=== PATIENT | male | born 1930 ===

== ENCOUNTER 2017-02-19 17:15 | Inpatient (IN) | payer MEDICARE, MEDICAID ==
[2017-02-19] MEDS ORDERED: Sodium Chloride 0.9% 1,000 ML IV STA (17:24)
--- NOTE | 2017-02-19 17:31 | ED PDOC ---
HPI: General Adult Time Seen by Provider: 02/19/17 17:22 Chief Complaint (Provider): dizziness History Per: EMS History/Exam Limitations: clinical condition (dementia) Onset/Duration Of Symptoms: Mins (prior to arrival) Current Symptoms Are (Timing): Better Additional Complaint(s): Donny Gomes is a 86 year old male with previous medical history of dementia, Parkinson's disease, diabetes and hypertension, who presents to the emergency department via EMS for an evaluation status post found unresponsive at adult daycare prior to arrival. Patient currently is awake, lethargic and dizzy in ED. Denied headache, chest pain, abdominal pain and palpitations. EMS reported patient was bradycardic, hypotensive with low O2 saturation upon arrival. PMD: none provided Past Medical History Reviewed: Historical Data, Nursing Documentation, Vital Signs Vital Signs: Last Vital Signs Temp 97.9 F 02/19/17 17:39 Pulse 75 02/19/17 17:39 Resp 17 02/19/17 17:39 BP 108/62 02/19/17 17:39 Pulse Ox 100 02/19/17 17:39 - Medical History PMH: Alzheimer's Disease, Arthritis, Dementia, Depression, Diabetes, Fractures ( right ankle sx), HTN, Parkinson's Disease, Pneumonia (2013) Denies: Chronic Kidney Disease - Surgical History Surgical History: Appendectomy - Family History Family History: States: Unknown Family Hx - Immunization History Hx Tetanus Toxoid Vaccination: No Hx Influenza Vaccination: No Hx Pneumococcal Vaccination: No - Home Medications Home Medications: Ambulatory Orders Medication Instructions Recorded ARIPiprazole [Abilify] 5 mg PO DAILY 02/19/17 Allopurinol [Zyloprim] 100 mg PO DAILY 02/19/17 Aspirin [Ecotrin] 81 mg PO DAILY 02/19/17 Atorvastatin [Lipitor] 40 mg PO DAILY 02/19/17 Carbidopa/Levodopa/Entacapone 1 tab PO BID 02/19/17 [Stalevo 100] Insulin Glargine, Recombina 20 unit SC HS 02/19/17 [Lantus] Insulin Lispro [humALOG] 15 unit SC ACTID 02/19/17 Losartan [Cozaar] 100 mg PO DAILY 02/19/17 Olopatadine 0.1% Opht [Patanol 1 drop EACHEYE BID 02/19/17 0.1% Opht Soln] Illvh-5-Olmg Ethyl Esters 1 GM 1 gm PO TID 02/19/17 [Lovaza] Paricalcitol [Zemplar] 1 mcg PO ASDIR 02/19/17 Pregabalin [Lyrica] 50 mg PO TID 02/19/17 Ranitidine HCl [Zantac] 150 mg PO DAILY 02/19/17 Rivastigmine 4.6 mg/24 hr [Exelon 1 patch TD DAILY 02/19/17 4.6 mg/24 hr Patch] SITagliptin [Januvia] 25 mg PO DAILY 02/19/17 Sertraline [Zoloft] 75 mg PO DAILY 02/19/17 Tamsulosin [Flomax] 0.4 mg PO DAILY 02/19/17 amLODIPine [Norvasc] 2.5 mg PO DAILY 02/19/17 predniSONE [predniSONE Tab] 5 mg PO DAILY 02/19/17 - Allergies Allergies/Adverse Reactions: Allergies Allergy/AdvReac Type Severity Reaction Status Date / Time No Known Allergies Allergy Verified 02/19/17 17:39 Review of Systems ROS Statement: Except As Marked, All Systems Reviewed And Found Negative Constitutional: Positive for: Malaise (lethargic) Cardiovascular: Negative for: Chest Pain, Palpitations Gastrointestinal: Negative for: Abdominal Pain Neurological: Positive for: Dizziness. Negative for: Headache Physical Exam - Reviewed Nursing Documentation Reviewed: Yes Vital Signs Reviewed: Yes - Physical Exam Appears: Positive for: Non-toxic, No Acute Distress Head Exam: Positive for: ATRAUMATIC, NORMAL INSPECTION, NORMOCEPHALIC Eye Exam: Positive for: EOMI, Normal appearance, PERRL Cardiovascular/Chest: Positive for: Regular Rate, Rhythm. Negative for: Chest Non Tender Respiratory: Positive for: Accessory Muscle Use, Rhonchi (scattered). Negative for: Normal Breath Sounds, Decreased Breath Sounds, Crackles, Rales, Wheezing, Respiratory Distress Gastrointestinal/Abdominal: Positive for: Soft, Mass (reducible ventral hernia) . Negative for: Normal Exam, Tenderness Extremity: Positive for: Normal ROM. Negative for: Tenderness, Pedal Edema, Calf Tenderness, Deformity Neurologic/Psych: Positive for: Alert (x2), Oriented, Mood/Affect (lethargic but arousable ) - Laboratory Results Result Diagrams: 02/19/17 17:20 09/20/17 17:20 Medical Decision Making Medical Decision Making: Initial Impression: Initial Plan: * CT head without contrast * EKG * Alcohol serum * CMP * Drug screen, urine * Troponin I * Urine dipstick * CBC * CXR * NS 1,000ml IV per 100mls/hr Time: 1807 --CT head FINDINGS: HEMORRHAGE: No intracranial hemorrhage. BRAIN: No mass effect or edema. Intracranial atherosclerotic calcifications. The woodson- white matter differentiation appears intact. Please note that MRI with diffusion imaging is more sensitive in the detection of acute ischemic event. VENTRICLES: No hydrocephalus. CALVARIUM: Unremarkable. PARANASAL SINUSES: Unremarkable as visualized. No significant inflammatory changes. MASTOID AIR CELLS: Unremarkable as visualized. No inflammatory changes. OTHER FINDINGS: None. IMPRESSION: No acute intracranial pathology identified. Scribe Attestation: Documented by Tiera Andujar, acting as a scribe for Feliz Walker MD. Provider Scribe Attestation: All medical record entries made by the Scribe were at my direction and personally dictated by me. I have reviewed the chart and agree that the record accurately reflects my personal performance of the history, physical exam, medical decision making, and the department course for this patient. I have also personally directed, reviewed, and agree with the discharge instructions and disposition. Disposition - Clinical Impression Clinical Impression: Syncope - Patient ED Disposition Is Patient to be Admitted: Yes - Disposition Disposition Time: 18:58 Condition: FAIR - Pt Status Changed To: Hospital Disposition Of: Observation - POA Present On Arrival: None
[2017-02-19 17:43] LABS: BASO # 0.1 K/uL (0.0-0.2); BASO % 0.5 % (0.0-2.0); EOS # 0.1 K/uL (0.0-0.7); EOS % 0.4 % (0.0-4.0); LYMPH # 2.4 K/uL (1.0-4.3); LYMPH % 16.9 % (20.0-40.0); MEAN CELL VOLUME 85.7 fl (80.0-94.0); MEAN CORPUSCULAR HEMOGLOBIN 27.6 pg (27.0-31.0); MEAN CORPUSCULAR HGB CONC 32.2 g/dL (33.0-37.0); MEAN PLATELET VOLUME 8.9 fl (7.2-11.7); MONO # 1.1 K/uL (0.0-0.8); MONO % 7.7 % (0.0-10.0); NEUT # 10.6 K/uL (1.8-7.0); NEUT % 74.5 % (50.0-75.0); RED CELL DISTRIBUTION WIDTH 16.6 % (11.5-14.5); WHITE BLOOD COUNT 14.3 K/uL (4.8-10.8)
[2017-02-19 17:55] LABS: ALB/GLOB RATIO 1.3 (1.0-2.1); ALCOHOL SERUM < 10 mg/dl (0-10); ALKALINE PHOSPHATASE 79 U/L (38-126); ALT/SGPT 25 U/L (21-72); AST/SGOT 26 U/L (17-59); BILIRUBIN,TOTAL 0.8 mg/dl (0.2-1.3); BLOOD UREA NITROGEN 48 mg/dl (9-20); CALCIUM 9.3 mg/dL (8.4-10.2); CARBON DIOXIDE 24 mmol/L (22-30); CHLORIDE 106 mmol/L (98-107); GFR AFRICAN-AMERICAN 29; GLUCOSE,RANDOM 146 mg/dL (75-110); SODIUM 140 mmol/l (132-148); TOTAL PROTEIN 6.8 G/DL (6.3-8.2)
--- NOTE | 2017-02-19 18:08 | CT ---
PROCEDURE: CT HEAD WITHOUT CONTRAST. HISTORY: r/o bleed COMPARISON: None available. TECHNIQUE: Axial computed tomography images were obtained through the head/brain without intravenous contrast. Radiation dose: Total exam DLP = 881.35 MGy-cm. This CT exam was performed using one or more of the following dose reduction techniques: Automated exposure control, adjustment of the mA and/or kV according to patient size, and/or use of iterative reconstruction technique. FINDINGS: HEMORRHAGE: No intracranial hemorrhage. BRAIN: No mass effect or edema. Intracranial atherosclerotic calcifications. The woodson-white matter differentiation appears intact. Please note that MRI with diffusion imaging is more sensitive in the detection of acute ischemic event. VENTRICLES: No hydrocephalus. CALVARIUM: Unremarkable. PARANASAL SINUSES: Unremarkable as visualized. No significant inflammatory changes. MASTOID AIR CELLS: Unremarkable as visualized. No inflammatory changes. OTHER FINDINGS: None. IMPRESSION: No acute intracranial pathology identified.
[2017-02-19] MEDS ORDERED: Pneumococcal 23-Valent Vaccine IM ONE (21:26)
[2017-02-19] MEDS ORDERED: Influenza Vaccine 18yr & older 0.5 ML/45 MCG SYR IM ONE (21:26)
[2017-02-19] MEDS: Insulin Detemir 100 Units/ml Inj SC SCH (22:12)
[2017-02-19] MEDS: Insulin Regular 100 units/ml SC SCH (22:12)
[2017-02-19 23:07] LABS: RBC URINE < 1 /hpf (0-3); URINE BILIRUBIN NEGATIVE (NEGATIVE); URINE BLOOD NEGATIVE (NEGATIVE); URINE COLOR AMBER (YELLOW); URINE GLUCOSE (UA) NEG (Normal); URINE KETONE TRACE mg/dL (NEGATIVE); URINE LEUKOCYTE ESTERASE SMALL Leu/uL (Negative); URINE PROTEIN NEGATIVE (NEGATIVE); URINE UROBILINOGEN 0.2-1.0 mg/dL (0.2-1.0); WBC URINE 2 /hpf (0-5)
[2017-02-20 06:31] LABS: ALB/GLOB RATIO 1.3 (1.0-2.1); CALCIUM 8.9 mg/dL (8.4-10.2); HEMATOCRIT 32.9 % (35.0-51.0); MEAN CELL VOLUME 84.8 fl (80.0-94.0); MEAN CORPUSCULAR HEMOGLOBIN 27.9 pg (27.0-31.0); POTASSIUM 4.4 MMOL/L (3.6-5.0); RED CELL DISTRIBUTION WIDTH 16.4 % (11.5-14.5); TOTAL PROTEIN 6.6 G/DL (6.3-8.2); WHITE BLOOD COUNT 11.3 K/uL (4.8-10.8)
[2017-02-20] MEDS: Insulin Regular 100 units/ml SC SCH ×4 (06:35→21:36)
[2017-02-20 06:52] LABS: THYROID STIMULATING HORMONE 1.2 mIU/ML (0.46-4.68)
--- NOTE | 2017-02-20 07:34 | CP.PCM.CON ---
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 SOLUMEDROL MRI AND MRA BRAIN IF HER CONDITION WORSE NEEDS LP CONTIUE ANTIBIOTICS AND ANTI VIRAL Past Patient History - Infectious Disease Hx of Infectious Diseases: None - Past Medical History & Family History Past Medical History?: Yes - Past Social History Smoking Status: Never Smoked - CARDIAC Hx Hypercholesterolemia: Yes Hx Hypertension: Yes - PULMONARY Hx Pneumonia: Yes (2012) - NEUROLOGICAL Hx Alzheimer's Disease: Yes Hx Dementia: Yes Hx Parkinson's Disease: Yes - HEENT Hx HEENT Problems: Yes Hx Blind: Yes (left eye) - RENAL Hx Chronic Kidney Disease: No - ENDOCRINE/METABOLIC Hx Diabetes Mellitus Type 2: Yes - HEMATOLOGICAL/ONCOLOGICAL Hx Blood Disorders: No Hx AIDS: No Hx Human Immunodeficiency Virus (HIV): No - INTEGUMENTARY Hx Dermatological Problems: No - MUSCULOSKELETAL/RHEUMATOLOGICAL Hx Arthritis: Yes Hx Falls: Yes Hx Fractures: Yes (right ankle sx) - GENITOURINARY/GYNECOLOGICAL Hx Genitourinary Disorders: Yes Hx Prostate Problems: Yes (BPH) Hx Urinary Tract Infection: Yes - PSYCHIATRIC Hx Depression: Yes Hx Substance Use: No - SURGICAL HISTORY Hx Appendectomy: Yes Hx Orthopedic Surgery: Yes (right ankle Fx with Sx) - ANESTHESIA Hx Anesthesia: Yes Hx Anesthesia Reactions: No Hx Malignant Hyperthermia: No Meds Allergies/Adverse Reactions: Allergies Allergy/AdvReac Type Severity Reaction Status Date / Time No Known Allergies Allergy Verified 02/19/17 17:39 - Medications Medications: Current Medications Allopurinol (Zyloprim) 100 mg PO DAILY [facility] Amlodipine Besylate (Norvasc) 2.5 mg PO DAILY [facility] Aripiprazole (Abilify) 5 mg PO DAILY [facility] Aspirin (Ecotrin) 81 mg PO DAILY [facility] Atorvastatin Calcium (Lipitor) 40 mg PO DAILY [facility] Enoxaparin Sodium (Lovenox) 30 mg SC DAILY [facility] PRN Reason: Protocol Famotidine (Pepcid) 20 mg PO DAILY [facility] Home Med (Carbidopa/Levodopa/Entacapone [Stalevo 100]) 1 tab PO BID [facility] Home Med (Paricalcitol [Zemplar]) 1 mcg PO ASDIR [facility] Insulin Detemir (Levemir) 20 units SC [facility] Last Admin: 02/19/17 22:12 Dose: 20 units Insulin Human Lispro (Humalog) 15 units SC ACTID [facility] Insulin Human Regular (Humulin R) 0 units SC ACHS [facility] PRN Reason: Protocol Last Admin: 02/20/17 06:35 Dose: Not Given Olopatadine HCl (Patanol 0.1% Opht Soln) 1 drop OU BID [facility] [id number] Ethyl Esters (Lovaza) 1 gm PO TID [facility] Prednisone (Prednisone Tab) 5 mg PO DAILY [facility] Pregabalin (Lyrica) 50 mg PO TID [facility] Rivastigmine (Exelon 4.6 Mg/24 Hr Patch) 1 patch TD DAILY [facility] Sertraline HCl (Zoloft) 75 mg PO DAILY [facility] Sitagliptin Phosphate (Januvia) 25 mg PO DAILY [facility] Tamsulosin HCl (Flomax) 0.4 mg PO DAILY [facility] Results - Vital Signs Recent Vital Signs: Last Vital Signs Temp 99.6 F 02/20/17 06:09 Pulse 88 02/20/17 05:20 Resp 18 02/20/17 05:20 BP 161/68 H 02/20/17 05:20 Pulse Ox 100 02/20/17 05:20 - Labs Result Diagrams: 02/20/17 05:00 02/20/17 05:00 Labs: Laboratory Results - last 24 hr 02/19/17 02/19/17 02/19/17 17:20 17:20 17:20 WBC 14.3 H RBC 3.73 L Hgb 10.3 L Hct 32.0 L MCV 85.7 MCH 27.6 MCHC 32.2 L RDW 16.6 H Plt Count 210 MPV 8.9 Neut % (Auto) 74.5 Lymph % (Auto) 16.9 L [place] % (Auto) 7.7 Eos % (Auto) 0.4 Baso % (Auto) 0.5 Neut # 10.6 H Lymph # 2.4 [place] # 1.1 H Eos # 0.1 Baso # 0.1 Sodium 140 Potassium 4.0 Chloride 106 Carbon Dioxide 24 Anion Gap 13 BUN 48 H Creatinine 2.6 H Est GFR ( Amer) 29 Est GFR (Non-Af Amer) 24 POC Glucose (mg/dL) 195 H Random Glucose 146 H Calcium 9.3 Total Bilirubin 0.8 AST 26 ALT 25 Alkaline Phosphatase 79 Troponin I 0.0170 Total Protein 6.8 Albumin 3.8 Globulin 3.0 Albumin/Globulin Ratio 1.3 Triglycerides Cholesterol LDL Cholesterol Direct HDL Cholesterol Total T3 TSH 3rd Generation Urine Color Urine Clarity Urine pH Ur Specific Mcguffey Urine Protein Urine Glucose (UA) Urine Ketones Urine Blood Urine Nitrate Urine Bilirubin Urine Urobilinogen Ur Leukocyte Esterase Urine RBC (Auto) Urine Microscopic WBC Ur Squamous Epith Cells Urine Opiates Screen Urine Methadone Screen Ur Barbiturates Screen Ur Phencyclidine Scrn Ur Amphetamines Screen U Benzodiazepines Scrn U Oth Cocaine Metabols U Cannabinoids Screen Alcohol, Quantitative < 10 02/19/17 02/19/17 02/19/17 21:33 22:57 22:57 WBC RBC Hgb Hct MCV MCH MCHC RDW Plt Count MPV Neut % (Auto) Lymph % (Auto) [place] % (Auto) Eos % (Auto) Baso % (Auto) Neut # Lymph # [place] # Eos # Baso # Sodium Potassium Chloride Carbon Dioxide Anion Gap BUN Creatinine Est GFR ( Amer) Est GFR (Non-Af Amer) POC Glucose (mg/dL) 114 H Random Glucose Calcium Total Bilirubin AST ALT Alkaline Phosphatase Troponin I Total Protein Albumin Globulin Albumin/Globulin Ratio Triglycerides Cholesterol LDL Cholesterol Direct HDL Cholesterol Total T3 TSH 3rd Generation Urine Color Aimee Urine Clarity Slighty-cloudy Urine pH 5.0 Ur Specific Mcguffey 1.019 Urine Protein Negative Urine Glucose (UA) Neg Urine Ketones Trace Urine Blood Negative Urine Nitrate Negative Urine Bilirubin Negative Urine Urobilinogen 0.2-1.0 Ur Leukocyte Esterase Small Urine RBC (Auto) < 1 Urine Microscopic WBC 2 Ur Squamous Epith Cells 3 Urine Opiates Screen Negative Urine Methadone Screen Negative Ur Barbiturates Screen Negative Ur Phencyclidine Scrn Negative Ur Amphetamines Screen Negative U Benzodiazepines Scrn Negative U Oth Cocaine Metabols Negative U Cannabinoids Screen Negative Alcohol, Quantitative 02/20/17 02/20/17 02/20/17 01:00 05:00 05:00 WBC 11.3 H RBC 3.88 L Hgb 10.8 L Hct 32.9 L MCV 84.8 MCH 27.9 MCHC 33.0 RDW 16.4 H Plt Count 211 MPV Neut % (Auto) Lymph % (Auto) [place] % (Auto) Eos % (Auto) Baso % (Auto) Neut # Lymph # [place] # Eos # Baso # Sodium 141 Potassium 4.4 Chloride 108 H Carbon Dioxide 23 Anion Gap 14 BUN 41 H Creatinine 1.9 H Est GFR ( Amer) 41 Est GFR (Non-Af Amer) 34 POC Glucose (mg/dL) Random Glucose 122 H Calcium 8.9 Total Bilirubin 1.0 AST 25 ALT 33 Alkaline Phosphatase 81 Troponin I < 0.0120 Total Protein 6.6 Albumin 3.7 Globulin 2.9 Albumin/Globulin Ratio 1.3 Triglycerides 108 Cholesterol 149 LDL Cholesterol Direct 61 HDL Cholesterol 36 Total T3 0.716 L TSH 3rd Generation 1.20 Urine Color Urine Clarity Urine pH Ur Specific [place]y Urine Protein Urine Glucose (UA) Urine Ketones Urine Blood Urine Nitrate Urine Bilirubin Urine Urobilinogen Ur Leukocyte Esterase Urine RBC (Auto) Urine Microscopic WBC Ur Squamous Epith Cells Urine Opiates Screen Urine Methadone Screen Ur Barbiturates Screen Ur Phencyclidine Scrn Ur Amphetamines Screen U Benzodiazepines Scrn U Oth Cocaine Metabols U Cannabinoids Screen Alcohol, Quantitative 02/20/17 05:45 WBC RBC Hgb Hct MCV MCH MCHC RDW Plt Count MPV Neut % (Auto) Lymph % (Auto) [place] % (Auto) Eos % (Auto) Baso % (Auto) Neut # Lymph # [place] # Eos # Baso # Sodium Potassium Chloride Carbon Dioxide Anion Gap BUN Creatinine Est GFR ( Amer) Est GFR (Non-Af Amer) POC Glucose (mg/dL) 115 H Random Glucose Calcium Total Bilirubin AST ALT Alkaline Phosphatase Troponin I Total Protein Albumin Globulin Albumin/Globulin Ratio Triglycerides Cholesterol LDL Cholesterol Direct HDL Cholesterol Total T3 TSH 3rd Generation Urine Color Urine Clarity Urine pH Ur Specific [place]y Urine Protein Urine Glucose (UA) Urine Ketones Urine Blood Urine Nitrate Urine Bilirubin Urine Urobilinogen Ur Leukocyte Esterase Urine RBC (Auto) Urine Microscopic WBC Ur Squamous Epith Cells Urine Opiates Screen Urine Methadone Screen Ur Barbiturates Screen Ur Phencyclidine Scrn Ur Amphetamines Screen U Benzodiazepines Scrn U Oth Cocaine Metabols U Cannabinoids Screen Alcohol, Quantitative
[2017-02-20] MEDS: Omega-3-Acid Ethyl Esters 1 GM Cap PO SCH ×3 (08:04→16:51)
[2017-02-20] MEDS: Olopatadine 0.1% Opht SOLN OU SCH ×2 (08:06→16:51)
[2017-02-20] MEDS: Insulin Lispro (humaLOG) 100 Units/ml Inj SC SCH ×3 (08:07→16:40)
--- NOTE | 2017-02-20 09:15 | RAD ---
HISTORY: syncope COMPARISON: No prior. TECHNIQUE: Chest PA and lateral FINDINGS: LUNGS: There is focal opacity and infiltrate at the left lower lung may represent a pneumonia. Differential consideration includes atelectasis. Bilateral lower lobe heterogeneous opacities and infiltrates. PLEURA: Blunting of the right costophrenic angle suspicious for small pleural effusion. CARDIOVASCULAR: The cardiac silhouette is mildly enlarged. OSSEOUS STRUCTURES: No significant abnormalities. VISUALIZED UPPER ABDOMEN: Normal. OTHER FINDINGS: None. IMPRESSION: Focal opacity at the left lower lobe may represent a pneumonia or less likely atelectasis. Mild pulmonary vascular congestion and small right pleural effusion. Mild cardiomegaly.
--- NOTE | 2017-02-20 10:49 | CARD ---
APPROVED REPORT EKG Measurement Heart [id number] <Conclusion> Normal sinus rhythm RSR' or QR pattern in V1 suggests right ventricular conduction delay Borderline ECG
[2017-02-20] MEDS ORDERED: Sodium Chloride 3% for Inhalation 4 ML VIAL.NEB IH PRN (11:29)
--- NOTE | 2017-02-20 12:36 | CP.PCM.CON ---
History of Present Illness - History of Present Illness History of Present Illness: I was asked to see patient by Dr. Barraza. Patient is a 86 year old male with PMH HTN who presents with syncope. The patient is a poor historian but reportedly had an episode of syncope. The [facility] from [facility] senior living. He is currently lying flat in bed. Previous echocardiogram in 2104 revealed normal left ventricular function. Review of Systems - Review of Systems Systems not reviewed;Unavailable: Altered Mental Status Past Patient History - Infectious Disease Hx of Infectious Diseases: None - Past Medical History & Family History Past Medical History?: Yes - Past Social History Smoking Status: Never Smoked - CARDIAC Hx Hypercholesterolemia: Yes Hx Hypertension: Yes - PULMONARY Hx Pneumonia: Yes (2012) - NEUROLOGICAL Hx Alzheimer's Disease: Yes Hx Dementia: Yes Hx Parkinson's Disease: Yes - HEENT Hx HEENT Problems: Yes Hx Blind: Yes (left eye) - RENAL Hx Chronic Kidney Disease: No - ENDOCRINE/METABOLIC Hx Diabetes Mellitus Type 2: Yes - HEMATOLOGICAL/ONCOLOGICAL Hx Blood Disorders: No Hx AIDS: No Hx Human Immunodeficiency Virus (HIV): No - INTEGUMENTARY Hx Dermatological Problems: No - MUSCULOSKELETAL/RHEUMATOLOGICAL Hx Arthritis: Yes Hx Falls: Yes Hx Fractures: Yes (right ankle sx) - GENITOURINARY/GYNECOLOGICAL Hx Genitourinary Disorders: Yes Hx Prostate Problems: Yes (BPH) Hx Urinary Tract Infection: Yes - PSYCHIATRIC Hx Depression: Yes Hx Substance Use: No - SURGICAL HISTORY Hx Appendectomy: Yes Hx Orthopedic Surgery: Yes (right ankle Fx with Sx) - ANESTHESIA Hx Anesthesia: Yes Hx Anesthesia Reactions: No Hx Malignant Hyperthermia: No Meds Allergies/Adverse Reactions: Allergies Allergy/AdvReac Type Severity Reaction Status Date / Time No Known Allergies Allergy Verified 02/19/17 17:39 - Medications Medications: Current Medications Allopurinol (Zyloprim) 100 mg PO DAILY [facility] Last Admin: 02/20/17 08:04 Dose: 100 mg Amlodipine Besylate (Norvasc) 2.5 mg PO DAILY [facility] Last Admin: 02/20/17 08:05 Dose: 2.5 mg Aripiprazole (Abilify) 5 mg PO DAILY [facility] Last Admin: 02/20/17 08:04 Dose: 5 mg Aspirin (Ecotrin) 81 mg PO DAILY [facility] Last Admin: 02/20/17 08:04 Dose: 81 mg Atorvastatin Calcium (Lipitor) 40 mg PO DAILY [facility] Last Admin: 02/20/17 08:15 Dose: 40 mg Enoxaparin Sodium (Lovenox) 30 mg SC DAILY [facility] PRN Reason: Protocol Famotidine (Pepcid) 20 mg PO DAILY [facility] Last Admin: 02/20/17 08:04 Dose: 20 mg Home Med (Carbidopa/Levodopa/Entacapone [Stalevo 100]) 1 tab PO BID [facility] Home Med (Paricalcitol [Zemplar]) 1 mcg PO ASDIR [facility] Ceftriaxone Sodium 1 gm/ (Sodium Chloride) 100 mls @ 100 mls/hr IVPB DAILY [facility] Insulin Detemir (Levemir) 20 units SC HS [facility] Last Admin: 02/19/17 22:12 Dose: 20 units Insulin Human Lispro (Humalog) 15 units SC ACTID [facility] Last Admin: 02/20/17 08:07 Dose: 15 units Insulin Human Regular (Humulin R) 0 units SC ACHS [facility] PRN Reason: Protocol Last Admin: 02/20/17 06:35 Dose: Not Given Olopatadine HCl (Patanol 0.1% Opht Soln) 1 drop OU BID [facility] Last Admin: 02/20/17 08:06 Dose: 1 drop [id number]-2-[id number] Ethyl Esters (Lovaza) 1 gm PO TID [facility] Last Admin: 02/20/17 08:04 Dose: 1 gm Prednisone (Prednisone Tab) 5 mg PO DAILY [facility] Last Admin: 02/20/17 08:15 Dose: 5 mg Pregabalin (Lyrica) 50 mg PO TID [facility] Last Admin: 02/20/17 08:15 Dose: 50 mg Rivastigmine (Exelon 4.6 Mg/24 Hr Patch) 1 patch TD DAILY [facility] Last Admin: 02/20/17 08:04 Dose: 1 patch Sertraline HCl (Zoloft) 75 mg PO DAILY [facility] Last Admin: 02/20/17 08:05 Dose: 75 mg Sitagliptin Phosphate (Januvia) 25 mg PO DAILY [facility] Last Admin: 02/20/17 08:03 Dose: 25 mg Tamsulosin HCl (Flomax) 0.4 mg PO DAILY [facility] Last Admin: 02/20/17 08:04 Dose: 0.4 mg Physical Exam - Constitutional Appears: Non-toxic - Head Exam Head Exam: NORMAL INSPECTION - Eye Exam Eye Exam: Normal appearance - ENT Exam ENT Exam: Mucous Membranes Moist - Neck Exam Neck exam: Positive for: Full Rom - Respiratory Exam Respiratory Exam: NORMAL BREATHING PATTERN - Cardiovascular Exam Cardiovascular Exam: REGULAR RHYTHM - GI/Abdominal Exam GI & Abdominal Exam: Normal Bowel Sounds - Rectal Exam Rectal Exam: Deferred - Extremities Exam Extremities exam: Negative for: pedal edema - Back Exam Back exam: NORMAL INSPECTION - Neurological Exam Neurological exam: Alert, Oriented x3 - Psychiatric Exam Psychiatric exam: Normal Affect - Skin Skin Exam: Normal Color Results - Vital Signs Recent Vital Signs: Last Vital Signs Temp 99 F 02/20/17 08:07 Pulse 77 02/20/17 08:07 Resp 18 02/20/17 08:07 BP 129/61 02/20/17 08:07 Pulse Ox 95 02/20/17 08:07 - Labs Result Diagrams: 02/20/17 05:00 02/20/17 05:00 Labs: Laboratory Results - last 24 hr 02/19/17 02/19/17 02/19/17 17:20 17:20 17:20 WBC 14.3 H RBC 3.73 L Hgb 10.3 L Hct 32.0 L MCV 85.7 MCH 27.6 MCHC 32.2 L RDW 16.6 H Plt Count 210 MPV 8.9 Neut % (Auto) 74.5 Lymph % (Auto) 16.9 L [place] % (Auto) 7.7 Eos % (Auto) 0.4 Baso % (Auto) 0.5 Neut # 10.6 H Lymph # 2.4 [place] # 1.1 H Eos # 0.1 Baso # 0.1 Sodium 140 Potassium 4.0 Chloride 106 Carbon Dioxide 24 Anion Gap 13 BUN 48 H Creatinine 2.6 H Est GFR ( Amer) 29 Est GFR (Non-Af Amer) 24 POC Glucose (mg/dL) 195 H Random Glucose 146 H Calcium 9.3 Total Bilirubin 0.8 AST 26 ALT 25 Alkaline Phosphatase 79 Troponin I 0.0170 Total Protein 6.8 Albumin 3.8 Globulin 3.0 Albumin/Globulin Ratio 1.3 Triglycerides Cholesterol LDL Cholesterol Direct HDL Cholesterol Vitamin B12 Total T3 TSH 3rd Generation Urine Color Urine Clarity Urine pH Ur Specific [place] Urine Protein Urine Glucose (UA) Urine Ketones Urine Blood Urine Nitrate Urine Bilirubin Urine Urobilinogen Ur Leukocyte Esterase Urine RBC (Auto) Urine Microscopic WBC Ur Squamous Epith Cells Urine Opiates Screen Urine Methadone Screen Ur Barbiturates Screen Ur Phencyclidine Scrn Ur Amphetamines Screen U Benzodiazepines Scrn U Oth Cocaine Metabols U Cannabinoids Screen Alcohol, Quantitative < 10 02/19/17 02/19/17 02/19/17 21:33 22:57 22:57 WBC RBC Hgb Hct MCV MCH MCHC RDW Plt Count MPV Neut % (Auto) Lymph % (Auto) [place] % (Auto) Eos % (Auto) Baso % (Auto) Neut # Lymph # [place] # Eos # Baso # Sodium Potassium Chloride Carbon Dioxide Anion Gap BUN Creatinine Est GFR ( Amer) Est GFR (Non-Af Amer) POC Glucose (mg/dL) 114 H Random Glucose Calcium Total Bilirubin AST ALT Alkaline Phosphatase Troponin I Total Protein Albumin Globulin Albumin/Globulin Ratio Triglycerides Cholesterol LDL Cholesterol Direct HDL Cholesterol Vitamin B12 Total T3 TSH 3rd Generation Urine Color [place]imee Urine Clarity Slighty-cloudy Urine pH 5.0 Ur Specific [place] 1.019 Urine Protein Negative Urine Glucose (UA) Neg Urine Ketones Trace Urine Blood Negative Urine Nitrate Negative Urine Bilirubin Negative Urine Urobilinogen 0.2-1.0 Ur Leukocyte Esterase Small Urine RBC (Auto) < 1 Urine Microscopic WBC 2 Ur Squamous Epith Cells 3 Urine Opiates Screen Negative Urine Methadone Screen Negative Ur Barbiturates Screen Negative Ur Phencyclidine Scrn Negative Ur Amphetamines Screen Negative U Benzodiazepines Scrn Negative U Oth Cocaine Metabols Negative U Cannabinoids Screen Negative Alcohol, Quantitative 02/20/17 02/20/17 02/20/17 01:00 05:00 05:00 WBC 11.3 H RBC 3.88 L Hgb 10.8 L Hct 32.9 L MCV 84.8 MCH 27.9 MCHC 33.0 RDW 16.4 H Plt Count 211 MPV Neut % (Auto) Lymph % (Auto) [place] % (Auto) Eos % (Auto) Baso % (Auto) Neut # Lymph # [place] # Eos # Baso # Sodium 141 Potassium 4.4 Chloride 108 H Carbon Dioxide 23 Anion Gap 14 BUN 41 H Creatinine 1.9 H Est GFR ( Amer) 41 Est GFR (Non-Af Amer) 34 POC Glucose (mg/dL) Random Glucose 122 H Calcium 8.9 Total Bilirubin 1.0 AST 25 ALT 33 Alkaline Phosphatase 81 Troponin I < 0.0120 Total Protein 6.6 Albumin 3.7 Globulin 2.9 Albumin/Globulin Ratio 1.3 Triglycerides 108 Cholesterol 149 LDL Cholesterol Direct 61 HDL Cholesterol 36 Vitamin B12 402 Total T3 0.716 L TSH 3rd Generation 1.20 Urine Color Urine Clarity Urine pH Ur Specific [place] Urine Protein Urine Glucose (UA) Urine Ketones Urine Blood Urine Nitrate Urine Bilirubin Urine Urobilinogen Ur Leukocyte Esterase Urine RBC (Auto) Urine Microscopic WBC Ur Squamous Epith Cells Urine Opiates Screen Urine Methadone Screen Ur Barbiturates Screen Ur Phencyclidine Scrn Ur Amphetamines Screen U Benzodiazepines Scrn U Oth Cocaine Metabols U Cannabinoids Screen Alcohol, Quantitative 02/20/17 02/20/17 02/20/17 05:45 08:50 11:29 WBC RBC Hgb Hct MCV MCH MCHC RDW Plt Count MPV Neut % (Auto) Lymph % (Auto) [place] % (Auto) Eos % (Auto) Baso % (Auto) Neut # Lymph # [place] # Eos # Baso # Sodium Potassium Chloride Carbon Dioxide Anion Gap BUN Creatinine Est GFR ( Amer) Est GFR (Non-Af Amer) POC Glucose (mg/dL) 115 H 253 H Random Glucose Calcium Total Bilirubin AST ALT Alkaline Phosphatase Troponin I 0.0150 Total Protein Albumin Globulin Albumin/Globulin Ratio Triglycerides Cholesterol LDL Cholesterol Direct HDL Cholesterol Vitamin B12 Total T3 TSH 3rd Generation Urine Color Urine Clarity Urine pH Ur Specific [place] Urine Protein Urine Glucose (UA) Urine Ketones Urine Blood Urine Nitrate Urine Bilirubin Urine Urobilinogen Ur Leukocyte Esterase Urine RBC (Auto) Urine Microscopic WBC Ur Squamous Epith Cells Urine Opiates Screen Urine Methadone Screen Ur Barbiturates Screen Ur Phencyclidine Scrn Ur Amphetamines Screen U Benzodiazepines Scrn U Oth Cocaine Metabols U Cannabinoids Screen Alcohol, Quantitative - EKG Data EKG Interpreted by: Myself EKG shows normal: Sinus rhythm Assessment & Plan (1) Syncope Assessment and Plan: will repeat echocardiogram. Status: Acute (2) Diabetes Assessment and Plan: tight glucose control Status: Chronic (3) HTN (hypertension) Assessment and Plan: blood pressure control Status: Chronic
--- NOTE | 2017-02-20 13:45 | CARD ---
APPROVED REPORT EXAM: Two-dimensional and M-mode echocardiogram with Doppler and color Doppler. Other Information Quality : GoodRhythm : NSR INDICATION Syncope 2D DIMENSIONS IVSd1.12 (0.7-1.1cm)LVDd4.41 (3.9-5.9cm) LVOT Diameter2.52 (1.8-2.4cm)PWd1.04 (0.7-1.1cm) IVSs1.46 (0.8-1.2cm)LVDs2.55 (2.5-4.0cm) FS (%) 42.2 %PWs1.56 (0.8-1.2cm) M-Mode DIMENSIONS Left Atrium (MM)4.47 (2.5-4.0cm)IVSd0.91 (0.7-1.1cm) Aortic Root3.03 (2.2-3.7cm)LVDd5.88 (4.0-5.6cm) Aortic Cusp Exc.2.13 (1.5-2.0cm)PWd1.25 (0.7-1.1cm) IVSs1.88 cmFS (%) 57 % LVDs2.53 (2.0-3.8cm)PWs1.50 cm Mitral Valve MV E Ttmepxyt43.5cm/sMV DECEL [id number] A Jgqqtkzv97.5cm/s MV ICI46pyS/A ratio0.9MVA (PHT)3.27cm2 TDI Lateral E' Peak V7.01cm/sMedial E' Peak V7.41cm/sE/Lateral E'10.8 E/Medial E'10.2 Pulmonary Valve PV Peak Xoyogsru905.4cm/s LEFT VENTRICLE The left ventricle is normal size. There is normal left ventricular wall thickness. The left ventricular function is normal. The left ventricular ejection fraction is within the normal range. The Ejection Fraction is 60-65%. There is normal LV segmental wall motion. The left ventricular diastolic function is normal. No left ventricle thrombus noted on this study. There is no mass noted in the left ventricle. RIGHT VENTRICLE The right ventricle is normal size. There is normal right ventricular wall thickness. The right ventricular systolic function is normal. ATRIA The left atrium size is normal. The right atrium size is normal. The interatrial septum is intact with no evidence for an atrial septal defect. AORTIC VALVE The aortic valve is normal in structure and function. No aortic regurgitation is present. There is no aortic valvular stenosis. There is no aortic valvular vegetation. MITRAL VALVE The mitral valve is normal in structure and function. There is no evidence of mitral valve prolapse. There is no mitral valve stenosis. There is no mitral valve regurgitation noted. TRICUSPID VALVE The tricuspid valve is normal in structure and function. There is no tricuspid valve regurgitation noted. There is no tricuspid valve prolapse or vegetation. There is no tricuspid valve stenosis. PULMONIC VALVE The pulmonary valve is normal in structure and function. There is no pulmonic valvular regurgitation. There is no pulmonic valvular stenosis. GREAT VESSELS The aortic root is normal in size. The IVC is normal in size and collapses >50% with inspiration. PERICARDIAL EFFUSION The pericardium appears normal. There is no pleural effusion. <Conclusion> The left ventricle is normal size. The left ventricular function is normal. The left ventricular ejection fraction is within the normal range. The Ejection Fraction is 60-65%.
[2017-02-20] MEDS: Enoxaparin 30 mg Syringe SC SCH (16:50)
--- NOTE | 2017-02-20 18:26 | CP.PCM.CON ---
History of Present Illness - History of Present Illness History of Present Illness: PLEASE IGNORE MY PREVIOUS TEXT WHICH WAS ENTERED BY MISTAKE HIS CONSULTATION DICTATED SYNCOPY HUMBERTO /CSA NEUROPATHY NEEDS MRI/EEG DVT PROPHYLAXIS / DM AND WEIGHT CONTROL PSG AN OP POLY PHARMACY Past Patient History - Infectious Disease Hx of Infectious Diseases: None - Past Medical History & Family History Past Medical History?: Yes - Past Social History Smoking Status: Never Smoked - CARDIAC Hx Hypercholesterolemia: Yes Hx Hypertension: Yes - PULMONARY Hx Pneumonia: Yes (2012) - NEUROLOGICAL Hx Alzheimer's Disease: Yes Hx Dementia: Yes Hx Parkinson's Disease: Yes - HEENT Hx HEENT Problems: Yes Hx Blind: Yes (left eye) - RENAL Hx Chronic Kidney Disease: No - ENDOCRINE/METABOLIC Hx Diabetes Mellitus Type 2: Yes - HEMATOLOGICAL/ONCOLOGICAL Hx Blood Disorders: No Hx AIDS: No Hx Human Immunodeficiency Virus (HIV): No - INTEGUMENTARY Hx Dermatological Problems: No - MUSCULOSKELETAL/RHEUMATOLOGICAL Hx Arthritis: Yes Hx Falls: Yes Hx Fractures: Yes (right ankle sx) - GENITOURINARY/GYNECOLOGICAL Hx Genitourinary Disorders: Yes Hx Prostate Problems: Yes (BPH) Hx Urinary Tract Infection: Yes - PSYCHIATRIC Hx Depression: Yes Hx Substance Use: No - SURGICAL HISTORY Hx Appendectomy: Yes Hx Orthopedic Surgery: Yes (right ankle Fx with Sx) - ANESTHESIA Hx Anesthesia: Yes Hx Anesthesia Reactions: No Hx Malignant Hyperthermia: No Meds Allergies/Adverse Reactions: Allergies Allergy/AdvReac Type Severity Reaction Status Date / Time No Known Allergies Allergy Verified 02/19/17 17:39 - Medications Medications: Current Medications Allopurinol (Zyloprim) 100 mg PO DAILY [facility] Last Admin: 02/20/17 08:04 Dose: 100 mg Amlodipine Besylate (Norvasc) 2.5 mg PO DAILY [facility] Last Admin: 02/20/17 08:05 Dose: 2.5 mg Aripiprazole (Abilify) 5 mg PO DAILY [facility] Last Admin: 02/20/17 08:04 Dose: 5 mg Aspirin (Ecotrin) 81 mg PO DAILY [facility] Last Admin: 02/20/17 08:04 Dose: 81 mg Atorvastatin Calcium (Lipitor) 40 mg PO DAILY [facility] Last Admin: 02/20/17 08:15 Dose: 40 mg Enoxaparin Sodium (Lovenox) 30 mg SC DAILY [facility] PRN Reason: Protocol Last Admin: 02/20/17 16:50 Dose: 30 mg Famotidine (Pepcid) 20 mg PO DAILY [facility] Last Admin: 02/20/17 08:04 Dose: 20 mg Home Med (Carbidopa/Levodopa/Entacapone [Stalevo 100]) 1 tab PO BID [facility] Home Med (Paricalcitol [Zemplar]) 1 mcg PO ASDIR [facility] Ceftriaxone Sodium 1 gm/ (Sodium Chloride) 100 mls @ 100 mls/hr IVPB DAILY [facility] Last Admin: 02/20/17 16:49 Dose: 100 mls/hr Insulin Detemir (Levemir) 20 units SC HS [facility] Last Admin: 02/19/17 22:12 Dose: 20 units Insulin Human Lispro (Humalog) 15 units SC ACTID [facility] Last Admin: 02/20/17 16:40 Dose: 15 units Insulin Human Regular (Humulin R) 0 units SC ACHS [facility] PRN Reason: Protocol Last Admin: 02/20/17 16:41 Dose: 2 units Olopatadine HCl (Patanol 0.1% Opht Soln) 1 drop OU BID [facility] Last Admin: 02/20/17 16:51 Dose: 1 drop Rljca-8-[id number] Ethyl Esters (Lovaza) 1 gm PO TID [facility] Last Admin: 02/20/17 16:51 Dose: 1 gm Prednisone (Prednisone Tab) 5 mg PO DAILY [facility] Last Admin: 02/20/17 08:15 Dose: 5 mg Pregabalin (Lyrica) 50 mg PO TID [facility] Last Admin: 02/20/17 17:05 Dose: 50 mg Rivastigmine (Exelon 4.6 Mg/24 Hr Patch) 1 patch TD DAILY [facility] Last Admin: 02/20/17 08:04 Dose: 1 patch Sertraline HCl (Zoloft) 75 mg PO DAILY [facility] Last Admin: 02/20/17 08:05 Dose: 75 mg Sitagliptin Phosphate (Januvia) 25 mg PO DAILY [facility] Last Admin: 02/20/17 08:03 Dose: 25 mg Tamsulosin HCl (Flomax) 0.4 mg PO DAILY [facility] Last Admin: 02/20/17 08:04 Dose: 0.4 mg Results - Vital Signs Recent Vital Signs: Last Vital Signs Temp 99.1 F 02/20/17 16:28 Pulse 83 02/20/17 16:28 Resp 16 02/20/17 16:28 BP 155/58 H 02/20/17 16:28 Pulse Ox 96 02/20/17 16:28 - Labs Result Diagrams: 02/20/17 05:00 02/20/17 05:00 Labs: Laboratory Results - last 24 hr 02/19/17 02/19/17 02/19/17 17:20 21:33 22:57 WBC RBC Hgb Hct MCV MCH MCHC RDW Plt Count Sodium Potassium Chloride Carbon Dioxide Anion Gap BUN Creatinine Est GFR ( Amer) Est GFR (Non-Af Amer) POC Glucose (mg/dL) 195 H 114 H Random Glucose Calcium Total Bilirubin AST ALT Alkaline Phosphatase Troponin I NT-Pro-B Natriuret Pep Total Protein Albumin Globulin Albumin/Globulin Ratio Triglycerides Cholesterol LDL Cholesterol Direct HDL Cholesterol Vitamin B12 Total T3 TSH 3rd Generation Urine Color Urine Clarity Urine pH Ur Specific [place] Urine Protein Urine Glucose (UA) Urine Ketones Urine Blood Urine Nitrate Urine Bilirubin Urine Urobilinogen Ur Leukocyte Esterase Urine RBC (Auto) Urine Microscopic WBC Ur Squamous Epith Cells Urine Opiates Screen Negative Urine Methadone Screen Negative Ur Barbiturates Screen Negative Ur Phencyclidine Scrn Negative Ur Amphetamines Screen Negative U Benzodiazepines Scrn Negative U Oth Cocaine Metabols Negative U Cannabinoids Screen Negative 02/19/17 02/20/17 02/20/17 22:57 01:00 05:00 WBC 11.3 H RBC 3.88 L Hgb 10.8 L Hct 32.9 L MCV 84.8 MCH 27.9 MCHC 33.0 RDW 16.4 H Plt Count 211 Sodium Potassium Chloride Carbon Dioxide Anion Gap BUN Creatinine Est GFR ( Amer) Est GFR (Non-Af Amer) POC Glucose (mg/dL) Random Glucose Calcium Total Bilirubin AST ALT Alkaline Phosphatase Troponin I < 0.0120 NT-Pro-B Natriuret Pep Total Protein Albumin Globulin Albumin/Globulin Ratio Triglycerides Cholesterol LDL Cholesterol Direct HDL Cholesterol Vitamin B12 Total T3 TSH 3rd Generation Urine Color Aimee Urine Clarity Slighty-cloudy Urine pH 5.0 Ur Specific [place] 1.019 Urine Protein Negative Urine Glucose (UA) Neg Urine Ketones Trace Urine Blood Negative Urine Nitrate Negative Urine Bilirubin Negative Urine Urobilinogen 0.2-1.0 Ur Leukocyte Esterase Small Urine RBC (Auto) < 1 Urine Microscopic WBC 2 Ur Squamous Epith Cells 3 Urine Opiates Screen Urine Methadone Screen Ur Barbiturates Screen Ur Phencyclidine Scrn Ur Amphetamines Screen U Benzodiazepines Scrn U Oth Cocaine Metabols U Cannabinoids Screen 02/20/17 02/20/17 02/20/17 05:00 05:45 08:50 WBC RBC Hgb Hct MCV MCH MCHC RDW Plt Count Sodium 141 Potassium 4.4 Chloride 108 H Carbon Dioxide 23 Anion Gap 14 BUN 41 H Creatinine 1.9 H Est GFR ( Amer) 41 Est GFR (Non-Af Amer) 34 POC Glucose (mg/dL) 115 H Random Glucose 122 H Calcium 8.9 Total Bilirubin 1.0 AST 25 ALT 33 Alkaline Phosphatase 81 Troponin I 0.0150 NT-Pro-B Natriuret Pep Total Protein 6.6 Albumin 3.7 Globulin 2.9 Albumin/Globulin Ratio 1.3 Triglycerides 108 Cholesterol 149 LDL Cholesterol Direct 61 HDL Cholesterol 36 Vitamin B12 402 Total T3 0.716 L TSH 3rd Generation 1.20 Urine Color Urine Clarity Urine pH Ur Specific [place] Urine Protein Urine Glucose (UA) Urine Ketones Urine Blood Urine Nitrate Urine Bilirubin Urine Urobilinogen Ur Leukocyte Esterase Urine RBC (Auto) Urine Microscopic WBC Ur Squamous Epith Cells Urine Opiates Screen Urine Methadone Screen Ur Barbiturates Screen Ur Phencyclidine Scrn Ur Amphetamines Screen U Benzodiazepines Scrn U Oth Cocaine Metabols U Cannabinoids Screen 02/20/17 02/20/17 02/20/17 11:29 12:20 15:48 WBC RBC Hgb Hct MCV MCH MCHC RDW Plt Count Sodium Potassium Chloride Carbon Dioxide Anion Gap BUN Creatinine Est GFR ( Amer) Est GFR (Non-Af Amer) POC Glucose (mg/dL) 253 H 245 H Random Glucose Calcium Total Bilirubin AST ALT Alkaline Phosphatase Troponin I NT-Pro-B Natriuret Pep 335 Total Protein Albumin Globulin Albumin/Globulin Ratio Triglycerides Cholesterol LDL Cholesterol Direct HDL Cholesterol Vitamin B12 Total T3 TSH 3rd Generation Urine Color Urine Clarity Urine pH Ur Specific [place] Urine Protein Urine Glucose (UA) Urine Ketones Urine Blood Urine Nitrate Urine Bilirubin Urine Urobilinogen Ur Leukocyte Esterase Urine RBC (Auto) Urine Microscopic WBC Ur Squamous Epith Cells Urine Opiates Screen Urine Methadone Screen Ur Barbiturates Screen Ur Phencyclidine Scrn Ur Amphetamines Screen U Benzodiazepines Scrn U Oth Cocaine Metabols U Cannabinoids Screen
[2017-02-20] MEDS: Insulin Detemir 100 Units/ml Inj SC SCH (22:00)
[2017-02-21] MEDS: Insulin Regular 100 units/ml SC SCH ×4 (06:38→21:14)
[2017-02-21 06:47] LABS: MEAN CORPUSCULAR HEMOGLOBIN 27.3 pg (27.0-31.0); MEAN CORPUSCULAR HGB CONC 32.2 g/dL (33.0-37.0); RED CELL DISTRIBUTION WIDTH 16.4 % (11.5-14.5); WHITE BLOOD COUNT 11.3 K/uL (4.8-10.8)
[2017-02-21 07:06] LABS: CALCIUM 8.2 mg/dL (8.4-10.2); POTASSIUM 3.9 MMOL/L (3.6-5.0)
--- NOTE | 2017-02-21 08:00 | CP.PCM.PN ---
Subjective - Date & Time of Evaluation Date of Evaluation: 02/21/17 Time of Evaluation: 07:50 - Subjective Subjective: patient has no knew complaints. Objective - Vital Signs/Intake and Output Vital Signs (last 24 hours): Temp Pulse Resp BP Pulse Ox 99.4 F 79 18 136/55 L 95 02/21/17 04:42 02/21/17 04:42 02/21/17 04:42 02/21/17 04:42 02/21/17 04:42 - Medications Medications: Current Medications Acetaminophen (Tylenol 325mg Tab) 650 mg PO Q6 PRN PRN Reason: Fever >100.4 F Last Admin: 02/20/17 22:20 Dose: 650 mg Allopurinol (Zyloprim) 100 mg PO DAILY [facility] Last Admin: 02/20/17 08:04 Dose: 100 mg Amlodipine Besylate (Norvasc) 2.5 mg PO DAILY [facility] Last Admin: 02/20/17 08:05 Dose: 2.5 mg Aripiprazole (Abilify) 5 mg PO DAILY [facility] Last Admin: 02/20/17 08:04 Dose: 5 mg Aspirin (Ecotrin) 81 mg PO DAILY [facility] Last Admin: 02/20/17 08:04 Dose: 81 mg Atorvastatin Calcium (Lipitor) 40 mg PO DAILY [facility] Last Admin: 02/20/17 08:15 Dose: 40 mg Enoxaparin Sodium (Lovenox) 30 mg SC DAILY [facility] PRN Reason: Protocol Last Admin: 02/20/17 16:50 Dose: 30 mg Famotidine (Pepcid) 20 mg PO DAILY [facility] Last Admin: 02/20/17 08:04 Dose: 20 mg Home Med (Carbidopa/Levodopa/Entacapone [Stalevo 100]) 1 tab PO BID [facility] Home Med (Paricalcitol [Zemplar]) 1 mcg PO ASDIR [facility] Ceftriaxone Sodium 1 gm/ (Sodium Chloride) 100 mls @ 100 mls/hr IVPB DAILY [facility] Last Admin: 02/20/17 16:49 Dose: 100 mls/hr Insulin Detemir (Levemir) 20 units SC HS [facility] Last Admin: 02/20/17 22:00 Dose: 20 units Insulin Human Lispro (Humalog) 15 units SC ACTID [facility] Last Admin: 02/20/17 16:40 Dose: 15 units Insulin Human Regular (Humulin R) 0 units SC ACHS [facility] PRN Reason: Protocol Last Admin: 02/21/17 06:38 Dose: 1 units Olopatadine HCl (Patanol 0.1% Opht Soln) 1 drop OU BID [facility] Last Admin: 02/20/17 16:51 Dose: 1 drop Larmt-5-Olkg Ethyl Esters (Lovaza) 1 gm PO TID [facility] Last Admin: 02/20/17 16:51 Dose: 1 gm Prednisone (Prednisone Tab) 5 mg PO DAILY [facility] Last Admin: 02/20/17 08:15 Dose: 5 mg Pregabalin (Lyrica) 50 mg PO TID [facility] Last Admin: 02/20/17 17:05 Dose: 50 mg Rivastigmine (Exelon 4.6 Mg/24 Hr Patch) 1 patch TD DAILY [facility] Last Admin: 02/20/17 08:04 Dose: 1 patch Sertraline HCl (Zoloft) 75 mg PO DAILY [facility] Last Admin: 02/20/17 08:05 Dose: 75 mg Sitagliptin Phosphate (Januvia) 25 mg PO DAILY [facility] Last Admin: 02/20/17 08:03 Dose: 25 mg Tamsulosin HCl (Flomax) 0.4 mg PO DAILY [facility] Last Admin: 02/20/17 08:04 Dose: 0.4 mg - Labs Labs: 02/21/17 05:00 02/21/17 05:00 - Constitutional Appears: Non-toxic - Head Exam Head Exam: NORMAL INSPECTION - Eye Exam Eye Exam: Normal appearance - ENT Exam ENT Exam: Mucous Membranes Moist - Neck Exam Neck Exam: Full ROM - Respiratory Exam Respiratory Exam: NORMAL BREATHING PATTERN - Cardiovascular Exam Cardiovascular Exam: REGULAR RHYTHM - GI/Abdominal Exam GI & Abdominal Exam: Normal Bowel Sounds - Rectal Exam Rectal Exam: Deferred - Extremities Exam Extremities Exam: absent: Pedal Edema - Back Exam Back Exam: NORMAL INSPECTION - Neurological Exam Neurological Exam: Alert - Psychiatric Exam Psychiatric exam: Normal Affect - Skin Skin Exam: Normal Color Assessment and Plan (1) Syncope Assessment & Plan: no events on telemetry. echocardiogram reveals nomal left ventricular function. Status: Acute (2) Diabetes Status: Chronic (3) HTN (hypertension) Status: Chronic
[2017-02-21] MEDS: Insulin Lispro (humaLOG) 100 Units/ml Inj SC SCH ×3 (08:13→17:07)
[2017-02-21] MEDS: Omega-3-Acid Ethyl Esters 1 GM Cap PO SCH ×3 (08:14→17:05)
[2017-02-21] MEDS: Enoxaparin 30 mg Syringe SC SCH (08:15)
[2017-02-21] MEDS: Olopatadine 0.1% Opht SOLN OU SCH ×2 (08:15→17:05)
--- NOTE | 2017-02-21 08:23 | CON ---
DATE: 02/20/2017 REASON FOR CONSULTATION: Syncope. CHIEF COMPLAINT: The patient was brought in to [facility] ([facility]ly [facility]] with a history of syncopal attack while he was in the daycare center. From neurological point of view, I was called to evaluate him for further management. HISTORY OF PRESENT ILLNESS: The patient is a moderately obese 86-year-old, right-handed male. While he was at the daycare center, had a witnessed loss of consciousness. No history of fall. No history of involuntary movement or postictal confusion, bowel or bladder incontinence. From history, no significant episodes in the past. PAST MEDICAL HISTORY: Psychiatric problem including depression, zbs-paqljch-ciycxsotr diabetes mellitus, osteoarthritis, gouty arthritis. PERSONAL HISTORY: Denies smoking or alcohol use. ALLERGIES: NO KNOWN ALLERGIES. REVIEW OF SYSTEMS: A 16-point system had been reviewed for neurological symptoms for near syncopal attack. MEDICATIONS: Abilify, aspirin, Exelon patch, Flomax, Januvia, Levemir, Lipitor, Lovaza, Lovenox, Lyrica, Norvasc, Pepcid, Zoloft, prednisone, and Zyloprim. PHYSICAL EXAMINATION VITAL SIGNS: Blood pressure 155/58, mean arterial pressure of 90, respiratory rate is 16, temperature 99.1, pulse rate 83 and regular. NECK: Supple. No carotid bruits. HEART: Sounds tachycardia. EXTREMITIES: 2+ pitting edema. 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 NEUROLOGIC: The patient is examined and interviewed only in Croatian. He knows he is in the hospital. He follows 2-step command. No right or left confusion. Speech is fluent. CRANIAL NERVE EXAMINATION: Both peripheral vision are small, very hard to track subtle movements and forcibly opening the eyelid. Pupils reactive to light. No facial sensory deficit. No facial asymmetry. Hearing seems to be intact. Mouth is moist. Tongue is midline. MOTOR EXAMINATION: Outstretched hand with eye closed, no drift is noted. Power asymmetric on left side. Deep tendon reflexes grossly absent. Plantars are downgoing. COORDINATION: Xaicjw-xryy-tewbeg test dysmetria noted on the left side. Gait is deferred at this time. WORKUP: CT of the head reviewed by me does not show any acute pathology, some small vessel disease noted. EKG, normal sinus rhythm. LABORATORY DATA: WBC 11.3, hemoglobin 10.8, hematocrit 32.9, and platelet 211. Sodium 141, potassium 4.4, chloride 108, bicarbonate 23, BUN 41, creatinine 1.9, GFR 41, glucose 245. B12 was 402. Cholesterol 149, LDL 61, HDL 36. Urine tox screen negative. CONCLUSION: The patient had a new-onset of syncopal attack. From neurologic point of view, nonconvulsive seizure or vertebrobasilar insufficiency should be ruled out. The patient also showed significant evidence of peripheral neuropathy. POLYPHARMACY: Some side effects of medications should be a cause for all these problem. Unwanted medications should be taken off. The patient should be kept in DVT prophylaxis. The patient should get out of the bed with strong diabetic control and weight reduction should be addressed. The patient should have polysomnogram which can be done as an outpatient to rule out sleep related breathing disorder or obstructive versus central sleep apnea. The patient will be followed closely. Wytat Drummond MD
[2017-02-21] MEDS: Azithromycin 500 MG in Sodium Chloride 0.9% 250 ML IVPB SCH (10:18)
--- NOTE | 2017-02-21 11:13 | CP.PCM.PN ---
Subjective - Date & Time of Evaluation Date of Evaluation: 02/21/17 Time of Evaluation: 07:30 - Subjective Subjective: pt seen and examined at bedside this morning. No acute events overnight. Remained febrile, spiking up to 102.8. No other symptoms or complaints. Reports feeling ok overall. Denies chills, cough, chest pain, SOB, palpitations, N/V/D/ C. Objective - Vital Signs/Intake and Output Vital Signs (last 24 hours): Temp Pulse Resp BP Pulse Ox 99.3 F 90 18 162/56 H 95 02/21/17 08:15 02/21/17 08:15 02/21/17 08:15 02/21/17 08:15 02/21/17 08:15 - Medications Medications: Current Medications Acetaminophen (Tylenol 325mg Tab) 650 mg PO Q6 PRN PRN Reason: Fever >100.4 F Last Admin: 02/20/17 22:20 Dose: 650 mg Allopurinol (Zyloprim) 100 mg PO DAILY [facility] Last Admin: 02/21/17 08:17 Dose: 100 mg Amlodipine Besylate (Norvasc) 2.5 mg PO DAILY [facility] Last Admin: 02/21/17 08:15 Dose: 2.5 mg Aripiprazole (Abilify) 5 mg PO DAILY [facility] Last Admin: 02/21/17 08:12 Dose: 5 mg Aspirin (Ecotrin) 81 mg PO DAILY [facility] Last Admin: 02/21/17 08:12 Dose: 81 mg Atorvastatin Calcium (Lipitor) 40 mg PO DAILY [facility] Last Admin: 02/21/17 08:14 Dose: 40 mg Enoxaparin Sodium (Lovenox) 30 mg SC DAILY [facility] PRN Reason: Protocol Last Admin: 02/21/17 08:15 Dose: 30 mg Famotidine (Pepcid) 20 mg PO DAILY [facility] Last Admin: 02/21/17 08:16 Dose: 20 mg Home Med (Carbidopa/Levodopa/Entacapone [Stalevo 100]) 1 tab PO BID [facility] Home Med (Paricalcitol [Zemplar]) 1 mcg PO ASDIR [facility] Ceftriaxone Sodium 1 gm/ (Sodium Chloride) 100 mls @ 100 mls/hr IVPB DAILY [facility] Last Admin: 02/21/17 08:16 Dose: 100 mls/hr Azithromycin 500 mg/ Sodium (Chloride) 250 mls @ 250 mls/hr IVPB DAILY [facility] Last Admin: 02/21/17 10:18 Dose: 250 mls/hr Insulin Detemir (Levemir) 20 units SC HS [facility] Last Admin: 02/20/17 22:00 Dose: 20 units Insulin Human Lispro (Humalog) 15 units SC ACTID [facility] Last Admin: 02/21/17 08:13 Dose: 15 units Insulin Human Regular (Humulin R) 0 units SC ACHS [facility] PRN Reason: Protocol Last Admin: 02/21/17 06:38 Dose: 1 units Olopatadine HCl (Patanol 0.1% Opht Soln) 1 drop OU BID [facility] Last Admin: 02/21/17 08:15 Dose: 1 drop Wzvsg-6-Ejbd Ethyl Esters (Lovaza) 1 gm PO TID [facility] Last Admin: 02/21/17 08:14 Dose: 1 gm Prednisone (Prednisone Tab) 5 mg PO DAILY [facility] Last Admin: 02/21/17 08:16 Dose: 5 mg Pregabalin (Lyrica) 50 mg PO TID [facility] Last Admin: 02/21/17 08:38 Dose: 50 mg Rivastigmine (Exelon 4.6 Mg/24 Hr Patch) 1 patch TD DAILY [facility] Last Admin: 02/21/17 08:12 Dose: 1 patch Sertraline HCl (Zoloft) 75 mg PO DAILY [facility] Last Admin: 02/21/17 08:17 Dose: 75 mg Sitagliptin Phosphate (Januvia) 25 mg PO DAILY [facility] Last Admin: 02/21/17 08:14 Dose: 25 mg Tamsulosin HCl (Flomax) 0.4 mg PO DAILY [facility] Last Admin: 02/21/17 08:12 Dose: 0.4 mg - Labs Labs: 02/21/17 05:00 02/21/17 05:00 - Constitutional Appears: Non-toxic, No Acute Distress - ENT Exam ENT Exam: Mucous Membranes Moist - Respiratory Exam Respiratory Exam: Clear to Ausculation Bilateral, NORMAL BREATHING PATTERN. absent: Accessory Muscle Use, Decreased Breath Sounds, Rales, Rhonchi, Respiratory Distress - Cardiovascular Exam Cardiovascular Exam: REGULAR RHYTHM, RRR, +S1, +S2. absent: JVD, Rubs - GI/Abdominal Exam GI & Abdominal Exam: Soft, Normal Bowel Sounds - Extremities Exam Extremities Exam: absent: Calf Tenderness Assessment and Plan (1) Community acquired bacterial pneumonia Assessment & Plan: left lower lobe infiltrate on CXR, hypoxia on presentation, as well as fever and elevated WBC point to CAP being the reason for syncopal episode. -Monitor CBC and vitals -currently on IV Rocephin and Zithromax Status: Acute (2) Syncope Assessment & Plan: likely secondary to CAP, however cardiologic/neurologic etiology cannot be excluded at this point -Brain MRI w/o contrast and EEG as per neurology recommendations -ECHO as requested by cardiology shows normal LVEF, wall motion, will follow up further cardio recommendations. Status: Acute (3) Parkinson disease Assessment & Plan: c/w home meds Status: Chronic (4) Dementia Assessment & Plan: c/w home meds Status: Chronic (5) Diabetes Assessment & Plan: as ordered Status: Chronic (6) HTN (hypertension) Assessment & Plan: c/w home meds Status: Chronic (7) Prophylactic measure Assessment & Plan: Lovenox 40mg SC QD Pepcid 20mg QD Status: Acute
--- NOTE | 2017-02-21 12:16 | CT ---
CT chest without IV contrast Indication: Rule out pneumonia Technique: Contiguous axial images were obtained through the chest without intravenous contrast enhancement. Sagittal and coronal reconstructions were generated and reviewed. This CT exam was performed using 1 or more of the falling dose reduction techniques: Automated exposure control, adjustment of the MAA and/or kV according to patient size, and/or use of iterative reconstruction technique. Radiation dose (DLP): 735.15 MGy-cm. Comparison: Chest x-ray performed 02/19/17 Findings: Visualized portions of the inferior thyroid gland appear unremarkable. The noncontrast mediastinal and hilar vascular structures appear grossly unremarkable. Cardiomegaly. Masslike lingular consolidation with evidence of air bronchograms, likely pneumonia. Small bilateral pleural effusions. No pneumothorax. Moderate-sized hiatal hernia/distal esophageal wall thickening. Limited visualization of the noncontrast upper abdomen demonstrates 7 mm probable splenule. Bilateral gynecomastia. No acute osseous abnormality is detected. Impression: Masslike lingular consolidation with evidence of air bronchograms, likely pneumonia. Correlate clinically. Recommend short-term follow-up to assess for complete resolution and exclude possibility of underlying malignancy/neoplasm. Moderate-sized hiatal hernia/distal esophageal wall thickening. Cardiomegaly.
[2017-02-21] MEDS: Insulin Detemir 100 Units/ml Inj SC SCH (21:15)
[2017-02-22] MEDS: Insulin Regular 100 units/ml SC SCH ×4 (06:44→21:14)
[2017-02-22 07:38] LABS: HEMATOCRIT 30.6 % (35.0-51.0); MEAN CELL VOLUME 84.6 fl (80.0-94.0); MEAN CORPUSCULAR HEMOGLOBIN 27.7 pg (27.0-31.0); MEAN CORPUSCULAR HGB CONC 32.7 g/dL (33.0-37.0); RED CELL DISTRIBUTION WIDTH 16.3 % (11.5-14.5); WHITE BLOOD COUNT 10.1 K/uL (4.8-10.8)
[2017-02-22 07:56] LABS: CALCIUM 8.2 mg/dL (8.4-10.2); POTASSIUM 3.9 MMOL/L (3.6-5.0)
--- NOTE | 2017-02-22 08:10 | CP.PCM.CON ---
History of Present Illness - History of Present Illness History of Present Illness: Asked by Dr. Barraza for a GI consultation on this patient. 86 year old male with history of DM, HTN who presented to hospital with syncopal episode. GI called for evaluation of abnormal CT imaging showing distal esophageal wall thickening. He is seen currently resting in bed and appears comfortable. He denies abdominal pain, nausea, vomiting, diarrhea, fever/chills, weight loss, rectal bleeding, or change in bowel habits. He is tolerating PO diet without any difficulty and denies regurgitation of food product. He had an EGD/ colonoscopy in 2013 which showed gastritis, left sided diverticulosis, and hemorrhoids. Social history: non-smoker, no ETOH use Family history: mother (colon cancer, diagnosed age 80) Review of Systems - Review of Systems Review of Systems: - All other 12 point review of systems performed, negative - Cardiovascular Cardiovascular: absent: Acrocyanosis, Chest Pain, Chest Pain at Rest, Chest Pain with Activity, Claudication, Diaphoresis, Dyspnea, Dyspnea on Exertion, Edema, Irregular Heart Rhythm, Pain Radiating to Arm/Neck/Jaw, Leg Edema, Leg Ulcers, Lightheadedness, Orthopnea, Palpitations, Paroxysmal Nocturnal Dyspnea, Pedal Edema, Radiating Pain, Rapid Heart Rate, Slow Heart Rate, Syncope, Other - Respiratory Respiratory: absent: Cough, Dyspnea, Hemoptysis, Dyspnea on Exertion, Wheezing, Snoring, Stridor, Pain on Inspiration, Chest Congestion, Excessive Mucous Production, Change in Mucous Color, Pain with Coughing, Other - Gastrointestinal Gastrointestinal: absent: Abdominal Pain, Belching, Bloating, Change in Bowel Habits, Change in Stool Character, Coffee Ground Emesis, Constipation, Cramping , Diarrhea, Dyspepsia, Dysphagia, Early Satiety, Excessive Flatus, Fecal Incontinence, Heartburn, Hematemesis, Hematochezia, Loose Stools, Melena, Nausea , Odynophagia, Temesmus, Vomiting, Other - Musculoskeletal Musculoskeletal: absent: Abnormal Gait, Arthralgias, Atrophy, Back Pain, Deformity, Joint Swelling, Limited Range of Motion, Loss of Height, Muscle Cramps, Muscle Weakness, Myalgias, Neck Pain, Numbness, Radiating Pain into Limb , Stiffness, Tingling, Other - Neurological Neurological: Syncope Past Patient History - Infectious Disease Hx of Infectious Diseases: None - Past Medical History & Family History Past Medical History?: Yes - Past Social History Smoking Status: Never Smoked - CARDIAC Hx Hypercholesterolemia: Yes Hx Hypertension: Yes - PULMONARY Hx Pneumonia: Yes (2012) - NEUROLOGICAL Hx Alzheimer's Disease: Yes Hx Dementia: Yes Hx Parkinson's Disease: Yes - HEENT Hx HEENT Problems: Yes Hx Blind: Yes (left eye) - RENAL Hx Chronic Kidney Disease: No - ENDOCRINE/METABOLIC Hx Diabetes Mellitus Type 2: Yes - HEMATOLOGICAL/ONCOLOGICAL Hx Blood Disorders: No Hx AIDS: No Hx Human Immunodeficiency Virus (HIV): No - INTEGUMENTARY Hx Dermatological Problems: No - MUSCULOSKELETAL/RHEUMATOLOGICAL Hx Arthritis: Yes Hx Falls: Yes Hx Fractures: Yes (right ankle sx) - GENITOURINARY/GYNECOLOGICAL Hx Genitourinary Disorders: Yes Hx Prostate Problems: Yes (BPH) Hx Urinary Tract Infection: Yes - PSYCHIATRIC Hx Depression: Yes Hx Substance Use: No - SURGICAL HISTORY Hx Appendectomy: Yes Hx Orthopedic Surgery: Yes (right ankle Fx with Sx) - ANESTHESIA Hx Anesthesia: Yes Hx Anesthesia Reactions: No Hx Malignant Hyperthermia: No Meds Allergies/Adverse Reactions: Allergies Allergy/AdvReac Type Severity Reaction Status Date / Time No Known Allergies Allergy Verified 02/19/17 17:39 - Medications Medications: Current Medications Acetaminophen (Tylenol 325mg Tab) 650 mg PO Q6 PRN PRN Reason: Fever >100.4 F Last Admin: 02/20/17 22:20 Dose: 650 mg Allopurinol (Zyloprim) 100 mg PO DAILY [facility] Last Admin: 02/21/17 08:17 Dose: 100 mg Amlodipine Besylate (Norvasc) 2.5 mg PO DAILY [facility] Last Admin: 02/21/17 08:15 Dose: 2.5 mg Aripiprazole (Abilify) 5 mg PO DAILY [facility] Last Admin: 02/21/17 08:12 Dose: 5 mg Aspirin (Ecotrin) 81 mg PO DAILY [facility] Last Admin: 02/21/17 08:12 Dose: 81 mg Atorvastatin Calcium (Lipitor) 40 mg PO DAILY [facility] Last Admin: 02/21/17 08:14 Dose: 40 mg Carbidopa/Levodopa (Sinemet) 1 tab PO BID [facility] Enoxaparin Sodium (Lovenox) 30 mg SC DAILY [facility] PRN Reason: Protocol Last Admin: 02/21/17 08:15 Dose: 30 mg Entacapone (Comtan) 200 mg PO BID [facility] Famotidine (Pepcid) 20 mg PO DAILY [facility] Last Admin: 02/21/17 08:16 Dose: 20 mg Ceftriaxone Sodium 1 gm/ (Sodium Chloride) 100 mls @ 100 mls/hr IVPB DAILY [facility] Last Admin: 02/21/17 08:16 Dose: 100 mls/hr Azithromycin 500 mg/ Sodium (Chloride) 250 mls @ 250 mls/hr IVPB DAILY [facility] Last Admin: 02/21/17 10:18 Dose: 250 mls/hr Insulin Detemir (Levemir) 20 units SC HS [facility] Last Admin: 02/21/17 21:15 Dose: 20 units Insulin Human Lispro (Humalog) 15 units SC ACTID [facility] Last Admin: 02/21/17 17:07 Dose: 15 units Insulin Human Regular (Humulin R) 0 units SC ACHS [facility] PRN Reason: Protocol Last Admin: 02/22/17 06:44 Dose: Not Given Olopatadine HCl (Patanol 0.1% Opht Soln) 1 drop OU BID [facility] Last Admin: 02/21/17 17:05 Dose: 1 drop Ohrbd-9-Cdgz Ethyl Esters (Lovaza) 1 gm PO TID [facility] Last Admin: 02/21/17 17:05 Dose: 1 gm Prednisone (Prednisone Tab) 2.5 mg PO DAILY [facility] Pregabalin (Lyrica) 50 mg PO TID [facility] Last Admin: 02/21/17 17:05 Dose: 50 mg Rivastigmine (Exelon 4.6 Mg/24 Hr Patch) 1 patch TD DAILY [facility] Last Admin: 02/21/17 08:12 Dose: 1 patch Sertraline HCl (Zoloft) 75 mg PO DAILY [facility] Last Admin: 02/21/17 08:17 Dose: 75 mg Sitagliptin Phosphate (Januvia) 25 mg PO DAILY [facility] Last Admin: 02/21/17 08:14 Dose: 25 mg Tamsulosin HCl (Flomax) 0.4 mg PO DAILY [facility] Last Admin: 02/21/17 08:12 Dose: 0.4 mg Physical Exam - Constitutional Appears: Non-toxic, No Acute Distress - Head Exam Head Exam: NORMAL INSPECTION - Eye Exam Eye Exam: EOMI, Normal appearance - ENT Exam ENT Exam: Mucous Membranes Moist - Respiratory Exam Respiratory Exam: Clear to Auscultation Bilateral - Cardiovascular Exam Cardiovascular Exam: REGULAR RHYTHM, +S1, +S2 - GI/Abdominal Exam GI & Abdominal Exam: Distended, Normal Bowel Sounds, Soft Additional comments: non tender to palpation in four quadrants no palpable hepato/splenomegaly - Extremities Exam Extremities exam: Positive for: normal inspection - Neurological Exam Neurological exam: Alert, CN II-XII Intact, Oriented x3, Reflexes Normal - Psychiatric Exam Psychiatric exam: Normal Affect, Normal Mood - Skin Skin Exam: Dry, Intact, Normal Color, Warm Results - Vital Signs Recent Vital Signs: Last Vital Signs Temp 98.3 F 02/22/17 05:00 Pulse 88 02/22/17 05:00 Resp 20 02/22/17 05:00 BP 148/61 02/22/17 05:00 Pulse Ox 100 02/22/17 05:00 - Labs Result Diagrams: 02/21/17 05:00 02/22/17 05:30 Labs: Laboratory Results - last 24 hr 02/21/17 02/21/17 02/21/17 10:59 15:54 20:54 Sodium Potassium Chloride Carbon Dioxide Anion Gap BUN Creatinine Est GFR ( Amer) Est GFR (Non-Af Amer) POC Glucose (mg/dL) 121 H 195 H 153 H Random Glucose Calcium 02/22/17 02/22/17 05:30 05:41 Sodium 144 Potassium 3.9 Chloride 107 Carbon Dioxide 25 Anion Gap 16 BUN 32 H Creatinine 1.5 Est GFR ( Amer) 54 Est GFR (Non-Af Amer) 45 POC Glucose (mg/dL) 86 Random Glucose 85 Calcium 8.2 L Assessment & Plan - Assessment and Plan (Free Text) Assessment: DM HTN Syncopal episode CT imaging reviewed by me showing hiatal hernia with associated distal esophageal wall thickening Pneumonia Plan: - Diet as tolerated - Continue with antibiotic therapy as per medical team - Syncopal workup in progress, follow up neurological recommendations - Distal esophageal wall thickening noted on CT imaging, however non-specific finding and patient currently asymptomatic without alarm features such as weight loss or dysphagia. He had EGD 4 years ago which apparently did not show esophageal pathology. Suggest continued observation and conservative management. - Patient would benefit from elective outpatient endoscopic evaluation following resolution of acute medical problems. No planned GI intervention, will sign off case, please reconsult as necessary, thank you. Discussed with Dr. Barraza.
[2017-02-22] MEDS: Insulin Lispro (humaLOG) 100 Units/ml Inj SC SCH ×3 (08:42→16:47)
[2017-02-22] MEDS: Omega-3-Acid Ethyl Esters 1 GM Cap PO SCH ×3 (08:47→16:46)
[2017-02-22] MEDS: Enoxaparin 30 mg Syringe SC SCH (08:48)
[2017-02-22] MEDS: Olopatadine 0.1% Opht SOLN OU SCH ×2 (08:49→16:48)
[2017-02-22] MEDS: Azithromycin 500 MG in Sodium Chloride 0.9% 250 ML IVPB SCH (09:02)
--- NOTE | 2017-02-22 11:33 | MRI ---
PROCEDURE: MRI BRAIN WITHOUT CONTRAST HISTORY: syncope COMPARISON: Comparison is made to the previous CT of the head dated 02/19/2017. No prior MRI of the brain available for comparison. TECHNIQUE: Multiplanar, multisequence MR images of the brain were obtained without intravenous contrast enhancement. FINDINGS: Suboptimal study due to the patient's motion. HEMORRHAGE: None DWI: No evidence of an acute or early subacute infarction. BRAIN PARENCHYMA: No mass effect or edema. Nonspecific small foci of hyperintense FLAIR signal seen at the periventricular region may represent chronic microvascular ischemic disease. VENTRICLES: Mild atrophy is noted associated with mildly dilated lateral ventricle. CRANIUM: Unremarkable. ORBITS: Grossly unremarkable. PARANASAL SINUSES/MASTOIDS: Mild sinuses mucosal thickening without evidence of air-fluid level. VASCULAR SYSTEM: Skull base flow voids intact. OTHER FINDINGS: None. IMPRESSION: Suboptimal study due to patient's motion. No evidence of acute infarction or acute pathology in the brain. Mild sinuses mucosal thickening without evidence of air-fluid level.
[2017-02-22] MEDS: Insulin Detemir 100 Units/ml Inj SC SCH (21:14)
[2017-02-23] MEDS ORDERED: Dextrose 50% SYRINGE Inj (50 ml) ONE (05:47)
[2017-02-23] MEDS ORDERED: Dextrose 50% SYRINGE Inj (50 ml) IVP ONE (05:53)
[2017-02-23] MEDS: Insulin Regular 100 units/ml SC SCH ×4 (06:33→21:52)
[2017-02-23 06:51] LABS: HEMATOCRIT 30.4 % (35.0-51.0); MEAN CELL VOLUME 84.4 fl (80.0-94.0); MEAN CORPUSCULAR HEMOGLOBIN 27.4 pg (27.0-31.0); MEAN CORPUSCULAR HGB CONC 32.4 g/dL (33.0-37.0); RED CELL DISTRIBUTION WIDTH 16.3 % (11.5-14.5); WHITE BLOOD COUNT 9.5 K/uL (4.8-10.8)
[2017-02-23 07:10] LABS: ALB/GLOB RATIO 1.1 (1.0-2.1); ALKALINE PHOSPHATASE 198 U/L (38-126); ALT/SGPT 75 U/L (21-72); AST/SGOT 82 U/L (17-59); BILIRUBIN,TOTAL 0.8 mg/dl (0.2-1.3); BLOOD UREA NITROGEN 26 mg/dl (9-20); CARBON DIOXIDE 24 mmol/L (22-30); CHLORIDE 106 mmol/L (98-107); GFR AFRICAN-AMERICAN > 60; GLUCOSE,RANDOM 179 mg/dL (75-110); POTASSIUM 3.7 MMOL/L (3.6-5.0); SODIUM 141 mmol/l (132-148); TOTAL PROTEIN 6.6 G/DL (6.3-8.2)
[2017-02-23] MEDS: Azithromycin 500 MG in Sodium Chloride 0.9% 250 ML IVPB SCH (08:19)
[2017-02-23] MEDS: Omega-3-Acid Ethyl Esters 1 GM Cap PO SCH ×3 (08:20→16:59)
[2017-02-23] MEDS: Enoxaparin 30 mg Syringe SC SCH (08:22)
[2017-02-23] MEDS: Olopatadine 0.1% Opht SOLN OU SCH ×2 (08:44→17:02)
[2017-02-23] MEDS: Insulin Lispro (humaLOG) 100 Units/ml Inj SC SCH ×3 (08:44→17:00)
[2017-02-23] MEDS: Insulin Detemir 100 Units/ml Inj SC SCH (21:59)
[2017-02-24 05:45] LABS: HEMATOCRIT 29.1 % (35.0-51.0); MEAN CELL VOLUME 83.5 fl (80.0-94.0); MEAN CORPUSCULAR HEMOGLOBIN 27.6 pg (27.0-31.0); RED CELL DISTRIBUTION WIDTH 16.4 % (11.5-14.5); WHITE BLOOD COUNT 8.5 K/uL (4.8-10.8)
[2017-02-24 05:50] LABS: ALB/GLOB RATIO 1.1 (1.0-2.1); ALKALINE PHOSPHATASE 200 U/L (38-126); ALT/SGPT 61 U/L (21-72); AST/SGOT 74 U/L (17-59); BILIRUBIN,TOTAL 0.6 mg/dl (0.2-1.3); BLOOD UREA NITROGEN 28 mg/dl (9-20); CALCIUM 8.1 mg/dL (8.4-10.2); CARBON DIOXIDE 21 mmol/L (22-30); CHLORIDE 107 mmol/L (98-107); GFR AFRICAN-AMERICAN > 60; GLUCOSE,RANDOM 199 mg/dL (75-110); POTASSIUM 4.3 MMOL/L (3.6-5.0); SODIUM 139 mmol/l (132-148); TOTAL PROTEIN 6.2 G/DL (6.3-8.2)
[2017-02-24] MEDS: Insulin Regular 100 units/ml SC SCH ×4 (06:51→21:25)
--- NOTE | 2017-02-24 08:19 | PN ---
DATE: 02/24/2017 SUBJECTIVE: The patient is seen and examined. Interim events noted. Consults noted and appreciated. The patient remains in progressive care unit, on telemetry monitoring. The patient feels okay. No coughing. No shortness of breath. No chest pain. PHYSICAL EXAMINATION GENERAL: The patient is no acute distress. VITAL SIGNS: Stable. HEART: S1 and S2, normal and regular. LUNGS: Good bilateral air exchange. ABDOMEN: Soft and nontender. EXTREMITIES: No edema. No calf swelling. No tenderness. No acute ischemia. CENTRAL NERVOUS SYSTEM: Essentially unchanged. DIAGNOSTIC DATA: Available diagnostic data reviewed. Telemetry monitoring does not show any significant arrhythmias. IMPRESSION: Overall, the patient's general medical condition is stable. PLAN: As ordered. Montana Barraza MD
[2017-02-24] MEDS: Omega-3-Acid Ethyl Esters 1 GM Cap PO SCH ×3 (08:55→17:12)
[2017-02-24] MEDS: Olopatadine 0.1% Opht SOLN OU SCH ×2 (08:59→17:13)
[2017-02-24] MEDS: Insulin Lispro (humaLOG) 100 Units/ml Inj SC SCH ×3 (09:01→17:12)
[2017-02-24] MEDS: Azithromycin 500 MG in Sodium Chloride 0.9% 250 ML IVPB SCH (09:11)
--- NOTE | 2017-02-24 09:11 | PN ---
SUBJECTIVE: The patient seen and examined. Interim events noted. Consults noted and appreciated. The patient remains in progressive care unit and telemetry monitoring. The patient is sleeping, arousable. Denies any specific complaint of chest pain, shortness of breath or coughing. PHYSICAL EXAMINATION: GENERAL: The patient is in no acute distress. VITAL SIGNS: Stable. HEART: S1 and S2 normal and regular. LUNGS: Good bilateral air exchange. ABDOMEN: Soft and nontender. EXTREMITIES: No edema. No calf swelling. No tenderness. No acute ischemia. CENTRAL NERVOUS SYSTEM: Essentially unchanged. DIAGNOSTIC DATA: Available diagnostic data reviewed. Telemetry monitoring does not reveal significant arrhythmias. ASSESSMENT: Overall, the patient's general medical condition is stable. PLAN: As ordered. Montana Barraza MD
--- NOTE | 2017-02-24 09:17 | PN ---
DATE: 02/22/2017 SUBJECTIVE: The patient seen and examined. Interim events noted. Consults noted and appreciated. The patient remains in progressive care unit and feels okay. Denies any chest pain. No shortness of breath or coughing. PHYSICAL EXAMINATION: GENERAL: The patient is in no acute distress. VITAL SIGNS: Stable. HEART: S1 and S2, normal and regular. LUNGS: Good bilateral air exchange. ABDOMEN: Soft and nontender. EXTREMITIES: No calf swelling. No tenderness. No acute ischemia. No edema. CENTRAL NERVOUS SYSTEMS: Essentially unchanged. DIAGNOSTIC DATA: Available diagnostic data reviewed. Telemetry monitoring does not show any significant arrhythmia. IMPRESSION: Overall, the patient's general medical condition is stable. PLAN: As ordered. oMntana Barraza MD
--- NOTE | 2017-02-24 10:48 | RAD ---
HISTORY: f/u COMPARISON: CT chest from 02/21/2017. FINDINGS: LUNGS: There is worsening consolidation in the left lower lobe. There is haziness in the right lower lobe. PLEURA: No significant pleural effusion identified, no pneumothorax apparent. CARDIOVASCULAR: There is borderline cardiomegaly and prominent central vasculature. OSSEOUS STRUCTURES: No significant abnormalities. VISUALIZED UPPER ABDOMEN: Normal. OTHER FINDINGS: None. IMPRESSION: 1. Worsening left lower lobe consolidation. 2. Mild cardiomegaly, prominent vasculature and question of layering right pleural effusion.
[2017-02-24] MEDS ORDERED: Lactulose 10 gm/15 ml Syrup PO PRN (11:42)
[2017-02-24] MEDS: Insulin Detemir 100 Units/ml Inj SC SCH (21:25)
[2017-02-25 06:25] LABS: HEMATOCRIT 30.2 % (35.0-51.0); MEAN CELL VOLUME 84.2 fl (80.0-94.0); MEAN CORPUSCULAR HEMOGLOBIN 27.6 pg (27.0-31.0); MEAN CORPUSCULAR HGB CONC 32.7 g/dL (33.0-37.0); RED CELL DISTRIBUTION WIDTH 16.2 % (11.5-14.5); WHITE BLOOD COUNT 9.5 K/uL (4.8-10.8)
[2017-02-25 06:32] LABS: ALB/GLOB RATIO 1.1 (1.0-2.1); ALKALINE PHOSPHATASE 207 U/L (38-126); ALT/SGPT 81 U/L (21-72); AST/SGOT 82 U/L (17-59); BILIRUBIN,TOTAL 0.6 mg/dl (0.2-1.3); BLOOD UREA NITROGEN 22 mg/dl (9-20); CALCIUM 8.5 mg/dL (8.4-10.2); CARBON DIOXIDE 27 mmol/L (22-30); CHLORIDE 108 mmol/L (98-107); GFR AFRICAN-AMERICAN > 60; GLUCOSE,RANDOM 72 mg/dL (75-110); POTASSIUM 4.6 MMOL/L (3.6-5.0); SODIUM 147 mmol/l (132-148); TOTAL PROTEIN 6.5 G/DL (6.3-8.2)
--- NOTE | 2017-02-25 08:47 | EEG ---
DATE: CONDITION OF THE RECORDING: This is a 16-channel electroencephalogram of awake and drowsy adult. During the study, photic stimulation was performed. Hyperventilation was not performed. The resting electroencephalogram showed 20 to 30 microvolts high theta activity seen at parietal and occipital leads. Anterior and posterior activity superimposed with 2 to 3 Hz of delta activity seen at frontal and central leads. The EKG artifacts contaminated the background rhythm. The photic stimulation did not evoke driving response noted at 2 to 20 Hz. IMPRESSION: This is abnormal electroencephalogram because of persistent slowing throughout. The record suggestive of bilateral cerebral dysfunction. This is probably secondary to metabolic vascular degenerative process. Please correlate the finding with the neurological and radiological studies. Wyatt Drummond MD
[2017-02-25] MEDS: Azithromycin 500 MG in Sodium Chloride 0.9% 250 ML IVPB SCH (09:00)
[2017-02-25] MEDS: Omega-3-Acid Ethyl Esters 1 GM Cap PO SCH ×2 (09:23→13:00)
[2017-02-25] MEDS: Olopatadine 0.1% Opht SOLN OU SCH (09:25)
--- NOTE | 2017-02-25 10:55 | CP.PCM.CON ---
History of Present Illness - History of Present Illness History of Present Illness: 86 y/o male admitted with syncope. Patient was subsequently found to have a multilobar pneumonia, and is being treated with Abx. PMHx: DM, Dementia, HTN. Never Smoker. No ETOH. Meds. See Med Rec List. ROS: Neg cough, neg sob, neg chest pain, neg hemoptysis. O/ afebrile. VSS Head: neg adeno Pos MATEUSZ Heart RRR NS1S2 ? M 2/6 Aortic. Lungs: Some scattered crackles left base. Abdo: S, NT, Pos BS. No C,C,E. Neruo GNF. O2 Sat on Room Air was 97%. Labs: See below. a/p Uncomplicated Multilobar Pneumonia 2/2 possible aspiration from syncope. Plan: Cont supp o2 PRN for O2 sat > 90% Cont IV Abx, monitor wbc#, temp, and cultures. No sputum available for micro studies. If sputum can be obtained, send for GS, and C & S. Repeat imaging in 48 hours. PUD and DVT prophylaxix. Signing out of case. Please reconsult if needed. Tx you for this consult. Past Patient History - Infectious Disease Hx of Infectious Diseases: None - Past Medical History & Family History Past Medical History?: Yes - Past Social History Smoking Status: Never Smoked - CARDIAC Hx Hypercholesterolemia: Yes Hx Hypertension: Yes - PULMONARY Hx Pneumonia: Yes (2012) - NEUROLOGICAL Hx Alzheimer's Disease: Yes Hx Dementia: Yes Hx Parkinson's Disease: Yes - HEENT Hx HEENT Problems: Yes Hx Blind: Yes (left eye) - RENAL Hx Chronic Kidney Disease: No - ENDOCRINE/METABOLIC Hx Diabetes Mellitus Type 2: Yes - HEMATOLOGICAL/ONCOLOGICAL Hx Blood Disorders: No Hx AIDS: No Hx Human Immunodeficiency Virus (HIV): No - INTEGUMENTARY Hx Dermatological Problems: No - MUSCULOSKELETAL/RHEUMATOLOGICAL Hx Arthritis: Yes Hx Falls: Yes Hx Fractures: Yes (right ankle sx) - GENITOURINARY/GYNECOLOGICAL Hx Genitourinary Disorders: Yes Hx Prostate Problems: Yes (BPH) Hx Urinary Tract Infection: Yes - PSYCHIATRIC Hx Depression: Yes Hx Substance Use: No - SURGICAL HISTORY Hx Appendectomy: Yes Hx Orthopedic Surgery: Yes (right ankle Fx with Sx) - ANESTHESIA Hx Anesthesia: Yes Hx Anesthesia Reactions: No Hx Malignant Hyperthermia: No Meds Allergies/Adverse Reactions: Allergies Allergy/AdvReac Type Severity Reaction Status Date / Time No Known Allergies Allergy Verified 02/19/17 17:39 - Medications Medications: Current Medications Acetaminophen (Tylenol 325mg Tab) 650 mg PO Q6 PRN PRN Reason: Fever >100.4 F Last Admin: 02/20/17 22:20 Dose: 650 mg Allopurinol (Zyloprim) 100 mg PO DAILY [facility] Last Admin: 02/25/17 09:23 Dose: 100 mg Amlodipine Besylate (Norvasc) 2.5 mg PO DAILY [facility] Last Admin: 02/25/17 09:28 Dose: 2.5 mg Aripiprazole (Abilify) 5 mg PO DAILY [facility] Last Admin: 02/24/17 08:58 Dose: 5 mg Aspirin (Ecotrin) 81 mg PO DAILY [facility] Last Admin: 02/25/17 09:23 Dose: 81 mg Atorvastatin Calcium (Lipitor) 40 mg PO DAILY [facility] Last Admin: 02/25/17 09:23 Dose: 40 mg Carbidopa/Levodopa (Sinemet) 1 tab PO BID [facility] Last Admin: 02/25/17 09:23 Dose: 1 tab Docusate Sodium (Colace) 100 mg PO BID [facility] Last Admin: 02/25/17 09:24 Dose: 100 mg Entacapone (Comtan) 200 mg PO BID [facility] Last Admin: 02/25/17 09:23 Dose: 200 mg Famotidine (Pepcid) 20 mg PO DAILY [facility] Last Admin: 02/25/17 09:23 Dose: 20 mg Ceftriaxone Sodium 1 gm/ (Sodium Chloride) 100 mls @ 100 mls/hr IVPB DAILY [facility] Last Admin: 02/25/17 09:00 Dose: 100 mls/hr Azithromycin 500 mg/ Sodium (Chloride) 250 mls @ 250 mls/hr IVPB DAILY [facility] Last Admin: 02/25/17 09:00 Dose: 250 mls/hr Insulin Detemir (Levemir) 20 units SC HS [facility] Last Admin: 02/24/17 21:25 Dose: 20 units Insulin Human Lispro (Humalog) 15 units SC ACTID [facility] Last Admin: 02/24/17 17:12 Dose: 15 units Insulin Human Regular (Humulin R) 0 units SC ACHS [facility] PRN Reason: Protocol Last Admin: 02/24/17 21:25 Dose: Not Given Lactulose (Enulose) 10 gm PO DAILY PRN PRN Reason: Constipation Last Admin: 02/24/17 17:13 Dose: 10 gm Olopatadine HCl (Patanol 0.1% Opht Soln) 1 drop OU BID [facility] Last Admin: 02/25/17 09:25 Dose: 1 drop Nuesi-8-[id number] Ethyl Esters (Lovaza) 1 gm PO TID [facility] Last Admin: 02/25/17 09:23 Dose: 1 gm Prednisone (Prednisone Tab) 2.5 mg PO DAILY [facility] Last Admin: 02/25/17 09:25 Dose: 2.5 mg Pregabalin (Lyrica) 50 mg PO TID [facility] Last Admin: 02/25/17 09:30 Dose: 50 mg Rivastigmine (Exelon 4.6 Mg/24 Hr Patch) 1 patch TD DAILY [facility] Last Admin: 02/25/17 09:25 Dose: 1 patch Sertraline HCl (Zoloft) 75 mg PO DAILY [facility] Last Admin: 02/25/17 09:26 Dose: 75 mg Sitagliptin Phosphate (Januvia) 25 mg PO DAILY [facility] Last Admin: 02/25/17 09:24 Dose: 25 mg Tamsulosin HCl (Flomax) 0.4 mg PO DAILY [facility] Last Admin: 02/25/17 09:25 Dose: 0.4 mg Results - Vital Signs Recent Vital Signs: Last Vital Signs Temp 98.4 F 02/25/17 08:00 Pulse 75 02/25/17 09:28 Resp 20 02/25/17 08:00 BP 148/70 02/25/17 09:28 Pulse Ox 95 02/25/17 08:00 - Labs Result Diagrams: 02/25/17 05:15 02/25/17 05:15 Labs: Laboratory Results - last 24 hr 02/24/17 02/24/17 02/24/17 10:49 16:16 21:24 WBC RBC Hgb Hct MCV MCH MCHC RDW Plt Count Sodium Potassium Chloride Carbon Dioxide Anion Gap BUN Creatinine Est GFR ( Amer) Est GFR (Non-Af Amer) POC Glucose (mg/dL) 264 H 139 H 138 H Random Glucose Calcium Total Bilirubin AST ALT Alkaline Phosphatase Total Protein Albumin Globulin Albumin/Globulin Ratio 02/25/17 02/25/17 02/25/17 05:15 05:15 05:40 WBC 9.5 RBC 3.58 L Hgb 9.9 L Hct 30.2 L MCV 84.2 MCH 27.6 MCHC 32.7 L RDW 16.2 H Plt Count 310 Sodium 147 Potassium 4.6 Chloride 108 H Carbon Dioxide 27 Anion Gap 17 BUN 22 H Creatinine 1.3 Est GFR ( Amer) > 60 Est GFR (Non-Af Amer) 53 POC Glucose (mg/dL) 71 Random Glucose 72 L Calcium 8.5 Total Bilirubin 0.6 AST 82 H ALT 81 H D Alkaline Phosphatase 207 H Total Protein 6.5 Albumin 3.4 L Globulin 3.1 Albumin/Globulin Ratio 1.1 02/25/17 06:50 WBC RBC Hgb Hct MCV MCH MCHC RDW Plt Count Sodium Potassium Chloride Carbon Dioxide Anion Gap BUN Creatinine Est GFR ( Amer) Est GFR (Non-Af Amer) POC Glucose (mg/dL) 97 Random Glucose Calcium Total Bilirubin AST ALT Alkaline Phosphatase Total Protein Albumin Globulin Albumin/Globulin Ratio
[2017-02-25] MEDS: Insulin Regular 100 units/ml SC SCH (12:00)
[2017-02-25 12:47] VITALS: BP 136/56; PULSE 78; RESP 18; TEMP 98; O2SAT 93
[2017-02-25] MEDS: Insulin Lispro (humaLOG) 100 Units/ml Inj SC SCH (13:00)
[2017-02-25] MEDS ORDERED: Insulin Lispro (humaLOG) 100 Units/ml Inj SC SCH (13:24)
--- NOTE | 2017-02-25 13:31 | CP.PCM.HP ---
History of Present Illness - History of Present Illness History of Present Illness: 86 y/o male with PMHx of dementia, Parkinson's disease, diabetes and hypertension, presented to the [facility] ED via EMS for an evaluation after being found unresponsive at his adult daycare earlier in the day. Patient was seen at [facility] ER and was awake at that point, but lethargic and dizzy. He denied fever/ chills, headache, CP/SOB/Palpitations, N/V/D/C, numbness/tingling. EMS reported that the patient was bradycardic, hypotensive and with low O2 saturation upon arrival. Present on Admission - Present on Admission Any Indicators Present on Admission: No Review of Systems - Review of Systems All systems: reviewed and no additional remarkable complaints except Past Patient History - Infectious Disease Hx of Infectious Diseases: None - Past Medical History & Family History Past Medical History?: Yes - Past Social History Smoking Status: Never Smoked Alcohol: None Drugs: Denies Home Situation {Lives}: With Family - CARDIAC Hx Hypercholesterolemia: Yes Hx Hypertension: Yes - PULMONARY Hx Pneumonia: Yes (2012) - NEUROLOGICAL Hx Alzheimer's Disease: Yes Hx Dementia: Yes Hx Parkinson's Disease: Yes - HEENT Hx HEENT Problems: Yes Hx Blind: Yes (left eye) - RENAL Hx Chronic Kidney Disease: No - ENDOCRINE/METABOLIC Hx Diabetes Mellitus Type 2: Yes - HEMATOLOGICAL/ONCOLOGICAL Hx Blood Disorders: No Hx AIDS: No Hx Human Immunodeficiency Virus (HIV): No - INTEGUMENTARY Hx Dermatological Problems: No - MUSCULOSKELETAL/RHEUMATOLOGICAL Hx Arthritis: Yes Hx Falls: Yes Hx Fractures: Yes (right ankle sx) - GENITOURINARY/GYNECOLOGICAL Hx Genitourinary Disorders: Yes Hx Prostate Problems: Yes (BPH) Hx Urinary Tract Infection: Yes - PSYCHIATRIC Hx Depression: Yes Hx Substance Use: No - SURGICAL HISTORY Hx Appendectomy: Yes Hx Orthopedic Surgery: Yes (right ankle Fx with Sx) - ANESTHESIA Hx Anesthesia: Yes Hx Anesthesia Reactions: No Hx Malignant Hyperthermia: No Meds Home Medications: Home Medication List Medication Instructions Recorded Confirmed Type Azithromycin 500MG/NS 250ml 500 mg IV DAILY #5 bag 02/25/17 Rx [Zithromax 500mg in NS] Docusate [Colace] 100 mg PO BID cap 02/25/17 Rx Entacapone [Comtan] 200 mg PO BID tab 02/25/17 Rx Famotidine [Pepcid] 20 mg PO DAILY tab 02/25/17 Rx Insulin Detemir [Levemir] 20 units SC HS vial 02/25/17 Rx Insulin Human Regular [HumuLIN R] 0 units SC ACHS ml 02/25/17 Rx Lactulose [Enulose] 10 gm PO DAILY PRN udc 02/25/17 Rx cefTRIAXone 1 gm [Rocephin 1 gram 1 gm IVPB DAILY #7 bag 02/25/17 Rx IVPB] Allergies/Adverse Reactions: Allergies Allergy/AdvReac Type Severity Reaction Status Date / Time No Known Allergies Allergy Verified 02/19/17 17:39 Physical Exam - Constitutional Appears: Non-toxic, No Acute Distress - Eye Exam Eye Exam: EOMI Pupil Exam: PERRL - ENT Exam ENT Exam: Mucous Membranes Moist - Respiratory Exam Respiratory Exam: Decreased Breath Sounds, Rhonchi, NORMAL BREATHING PATTERN. absent: Accessory Muscle Use, Chest Wall Tenderness, Rales, Wheezes - Cardiovascular Exam Cardiovascular Exam: REGULAR RHYTHM, RRR, +S1, +S2. absent: JVD - GI/Abdominal Exam GI & Abdominal Exam: Normal Bowel Sounds, Soft. absent: Tenderness Results - Vital Signs Recent Vital Signs: Last Vital Signs Temp 98 F 02/25/17 12:00 Pulse 78 02/25/17 12:00 Resp 18 02/25/17 12:00 BP 136/56 L 02/25/17 12:00 Pulse Ox 93 L 02/25/17 12:00 - Labs Result Diagrams: 02/25/17 05:15 02/25/17 05:15 Labs: Laboratory Results - last 24 hr 02/24/17 02/24/17 02/25/17 16:16 21:24 05:15 WBC 9.5 RBC 3.58 L Hgb 9.9 L Hct 30.2 L MCV 84.2 MCH 27.6 MCHC 32.7 L RDW 16.2 H Plt Count 310 Sodium Potassium Chloride Carbon Dioxide Anion Gap BUN Creatinine Est GFR ( Amer) Est GFR (Non-Af Amer) POC Glucose (mg/dL) 139 H 138 H Random Glucose Calcium Total Bilirubin AST ALT Alkaline Phosphatase Total Protein Albumin Globulin Albumin/Globulin Ratio 02/25/17 02/25/17 02/25/17 05:15 05:40 06:50 WBC RBC Hgb Hct MCV MCH MCHC RDW Plt Count Sodium 147 Potassium 4.6 Chloride 108 H Carbon Dioxide 27 Anion Gap 17 BUN 22 H Creatinine 1.3 Est GFR ( Amer) > 60 Est GFR (Non-Af Amer) 53 POC Glucose (mg/dL) 71 97 Random Glucose 72 L Calcium 8.5 Total Bilirubin 0.6 AST 82 H ALT 81 H D Alkaline Phosphatase 207 H Total Protein 6.5 Albumin 3.4 L Globulin 3.1 Albumin/Globulin Ratio 1.1 02/25/17 12:34 WBC RBC Hgb Hct MCV MCH MCHC RDW Plt Count Sodium Potassium Chloride Carbon Dioxide Anion Gap BUN Creatinine Est GFR ( Amer) Est GFR (Non-Af Amer) POC Glucose (mg/dL) 199 H Random Glucose Calcium Total Bilirubin AST ALT Alkaline Phosphatase Total Protein Albumin Globulin Albumin/Globulin Ratio Assessment & Plan (1) Community acquired bacterial pneumonia Status: Acute (2) Syncope Status: Acute (3) Parkinson disease Status: Chronic (4) Dementia Status: Chronic (5) Diabetes Status: Chronic (6) HTN (hypertension) Status: Chronic (7) Prophylactic measure Status: Acute
--- NOTE | 2017-02-25 13:38 | CP.PCM.PN ---
Subjective - Date & Time of Evaluation Date of Evaluation: 02/25/17 Time of Evaluation: 13:37 - Subjective Subjective: pt seen and examined with atteding at bedside this morning. No acute events overnight. Afebrile. Vitals stable. Pt clinically looks improved. Lying in bed comfortably, NAD. Pt denies any new complaints this morning. Objective - Vital Signs/Intake and Output Vital Signs (last 24 hours): Temp Pulse Resp BP Pulse Ox 98 F 78 18 136/56 L 93 L 02/25/17 12:00 02/25/17 12:00 02/25/17 12:00 02/25/17 12:00 02/25/17 12:00 - Medications Medications: Current Medications Acetaminophen (Tylenol 325mg Tab) 650 mg PO Q6 PRN PRN Reason: Fever >100.4 F Last Admin: 02/20/17 22:20 Dose: 650 mg Allopurinol (Zyloprim) 100 mg PO DAILY [facility] Last Admin: 02/25/17 09:23 Dose: 100 mg Amlodipine Besylate (Norvasc) 2.5 mg PO DAILY [facility] Last Admin: 02/25/17 09:28 Dose: 2.5 mg Aripiprazole (Abilify) 5 mg PO DAILY [facility] Last Admin: 02/25/17 10:00 Dose: 5 mg Aspirin (Ecotrin) 81 mg PO DAILY [facility] Last Admin: 02/25/17 09:23 Dose: 81 mg Atorvastatin Calcium (Lipitor) 40 mg PO DAILY [facility] Last Admin: 02/25/17 09:23 Dose: 40 mg Carbidopa/Levodopa (Sinemet) 1 tab PO BID [facility] Last Admin: 02/25/17 09:23 Dose: 1 tab Docusate Sodium (Colace) 100 mg PO BID [facility] Last Admin: 02/25/17 09:24 Dose: 100 mg Entacapone (Comtan) 200 mg PO BID [facility] Last Admin: 02/25/17 09:23 Dose: 200 mg Famotidine (Pepcid) 20 mg PO DAILY [facility] Last Admin: 02/25/17 09:23 Dose: 20 mg Ceftriaxone Sodium 1 gm/ (Sodium Chloride) 100 mls @ 100 mls/hr IVPB DAILY [facility] Last Admin: 02/25/17 09:00 Dose: 100 mls/hr Azithromycin 500 mg/ Sodium (Chloride) 250 mls @ 250 mls/hr IVPB DAILY [facility] Last Admin: 02/25/17 09:00 Dose: 250 mls/hr Insulin Detemir (Levemir) 20 units SC HS [facility] Last Admin: 02/24/17 21:25 Dose: 20 units Insulin Human Lispro (Humalog) 7 units SC ACTID [facility] Insulin Human Regular (Humulin R) 0 units SC ACHS [facility] PRN Reason: Protocol Last Admin: 02/24/17 21:25 Dose: Not Given Lactulose (Enulose) 10 gm PO DAILY PRN PRN Reason: Constipation Last Admin: 02/24/17 17:13 Dose: 10 gm Olopatadine HCl (Patanol 0.1% Opht Soln) 1 drop OU BID [facility] Last Admin: 02/25/17 09:25 Dose: 1 drop Dsomi-8-[id number] Ethyl Esters (Lovaza) 1 gm PO TID [facility] Last Admin: 02/25/17 13:00 Dose: 1 gm Prednisone (Prednisone Tab) 2.5 mg PO DAILY [facility] Last Admin: 02/25/17 09:25 Dose: 2.5 mg Pregabalin (Lyrica) 50 mg PO TID [facility] Last Admin: 02/25/17 13:34 Dose: 50 mg Rivastigmine (Exelon 4.6 Mg/24 Hr Patch) 1 patch TD DAILY [facility] Last Admin: 02/25/17 09:25 Dose: 1 patch Sertraline HCl (Zoloft) 75 mg PO DAILY [facility] Last Admin: 02/25/17 09:26 Dose: 75 mg Sitagliptin Phosphate (Januvia) 25 mg PO DAILY [facility] Last Admin: 02/25/17 09:24 Dose: 25 mg Tamsulosin HCl (Flomax) 0.4 mg PO DAILY [facility] Last Admin: 02/25/17 09:25 Dose: 0.4 mg - Labs Labs: 02/25/17 05:15 02/25/17 05:15 - Constitutional Appears: Non-toxic, No Acute Distress - ENT Exam ENT Exam: Mucous Membranes Moist - Respiratory Exam Respiratory Exam: Rales, NORMAL BREATHING PATTERN. absent: Accessory Muscle Use , Chest Wall Tenderness, Decreased Breath Sounds, Rhonchi, Wheezes Additional comments: left side, scattered - Cardiovascular Exam Cardiovascular Exam: REGULAR RHYTHM, RRR, +S1, +S2. absent: JVD, Rubs - GI/Abdominal Exam GI & Abdominal Exam: Soft, Normal Bowel Sounds - Extremities Exam Extremities Exam: absent: Calf Tenderness - Neurological Exam Neurological Exam: Alert, Awake Assessment and Plan (1) Community acquired bacterial pneumonia Assessment & Plan: C/W O2 via NC to maintain O2 sat > 90% C/W IV ABx as ordered monitor Vitals, repeat CBC in am to monitor WBC as per pulmonology: if sputum can be obtained, send for Gram stain, culture and sensitivity. Repeat imaging in 48 hours. f/u chest CT Status: Acute (2) Syncope Assessment & Plan: likley secondary to CAP, c/w with management as above. will f/u neurology recommendations Status: Acute (3) Parkinson disease Assessment & Plan: c/w home meds Status: Chronic (4) Dementia Assessment & Plan: c/w home meds Status: Chronic (5) Diabetes Assessment & Plan: c/w home meds, insulin coverage scale Status: Chronic (6) HTN (hypertension) Status: Chronic (7) Prophylactic measure Assessment & Plan: Lovenox 40mg SC QD Pepcid 20mg QD Status: Acute
[2017-02-26] MEDS ORDERED: Enoxaparin 40 mg Syringe SC SCH (09:00)
== END 2017-02-25 15:13 | DRG 195 ==
LOC: H.ER 17:15 → H.ERHOLD 18:57 → H.TEL 20:41 → OBSVTOIN 02-20 11:40 → H.TEL 02-22 19:04
PROVIDERS: ADMIT Internal Medicine; ATTEND Internal Medicine
PROC: 3E0F73Z Introduction of Anti-inflammatory into Respiratory Tract, Via Natural or Artificial Opening (ICD-10-PCS; principal; 2017-02-20)
PROC: 3E0234Z Introduction of Serum, Toxoid and Vaccine into Muscle, Percutaneous Approach (ICD-10-PCS; 2017-02-20)
PROC: 3E0F7GC Introduction of Other Therapeutic Substance into Respiratory Tract, Via Natural or Artificial Opening (ICD-10-PCS; 2017-02-20)
DX: J15.9 Unspecified bacterial pneumonia (principal); E11.42 Type 2 diabetes mellitus with diabetic polyneuropathy; G20 Parkinson's disease; G30.9 Alzheimer's disease, unspecified; F02.80 Dementia in other diseases classified elsewhere, unspecified severity, without behavioral disturbance, psychotic disturbance, mood disturbance, and anxiety; B02.9 Zoster without complications; R09.02 Hypoxemia; R55 Syncope and collapse; I10 Essential (primary) hypertension; M10.9 Gout, unspecified; E66.9 Obesity, unspecified; Z68.35 Body mass index [BMI] 35.0-35.9, adult; E78.00 Pure hypercholesterolemia, unspecified; K44.9 Diaphragmatic hernia without obstruction or gangrene; H54.42 Blindness, left eye, normal vision right eye; M19.90 Unspecified osteoarthritis, unspecified site; F32.9 Major depressive disorder, single episode, unspecified; N40.0 Benign prostatic hyperplasia without lower urinary tract symptoms; Z23 Encounter for immunization; Z79.4 Long term (current) use of insulin; Z79.82 Long term (current) use of aspirin; Z87.01 Personal history of pneumonia (recurrent); Z87.440 Personal history of urinary (tract) infections; Z89.022 Acquired absence of left finger(s)

== ENCOUNTER 2017-02-25 13:54 | Inpatient (IN) | payer OTHER, MEDICAID ==
[2017-02-25 15:28] VITALS: BMI 34.9
[2017-02-25 16:43] VITALS: RESP 20
[2017-02-25] MEDS: Insulin Regular 100 units/ml SC SCH ×2 (16:54→21:56)
[2017-02-25] MEDS: Omega-3-Acid Ethyl Esters 1 GM Cap PO SCH (16:55)
[2017-02-25] MEDS: Olopatadine 0.1% Opht SOLN OU SCH (16:55)
[2017-02-25] MEDS: Azithromycin 500 MG in Sodium Chloride 0.9% 250 ML IVPB SCH (16:59)
[2017-02-25] MEDS ORDERED: ENTACAPONE PO SCH (17:00)
[2017-02-25] MEDS ORDERED: LEVODOPA PO SCH (17:00)
[2017-02-25] MEDS ORDERED: CARBIDOPA PO SCH (17:00)
[2017-02-25] MEDS: Insulin Detemir 100 Units/ml Inj SC SCH (21:57)
[2017-02-26 06:31] LABS: HEMATOCRIT 30.7 % (35.0-51.0); MEAN CELL VOLUME 83.2 fl (80.0-94.0); MEAN CORPUSCULAR HEMOGLOBIN 28.3 pg (27.0-31.0); RED CELL DISTRIBUTION WIDTH 16.3 % (11.5-14.5)
[2017-02-26 06:42] LABS: ALB/GLOB RATIO 1.1 (1.0-2.1); ALKALINE PHOSPHATASE 189 U/L (38-126); ALT/SGPT 77 U/L (21-72); AST/SGOT 57 U/L (17-59); BILIRUBIN,TOTAL 0.5 mg/dl (0.2-1.3); BLOOD UREA NITROGEN 21 mg/dl (9-20); CALCIUM 8.6 mg/dL (8.4-10.2); CARBON DIOXIDE 27 mmol/L (22-30); CHLORIDE 106 mmol/L (98-107); GFR AFRICAN-AMERICAN > 60; GLUCOSE,RANDOM 96 mg/dL (75-110); POTASSIUM 4.7 MMOL/L (3.6-5.0); SODIUM 147 mmol/l (132-148); TOTAL PROTEIN 6.6 G/DL (6.3-8.2)
[2017-02-26] MEDS: Insulin Regular 100 units/ml SC SCH ×4 (07:52→21:33)
[2017-02-26] MEDS: Olopatadine 0.1% Opht SOLN OU SCH ×2 (08:47→16:26)
[2017-02-26] MEDS: Omega-3-Acid Ethyl Esters 1 GM Cap PO SCH ×3 (08:48→17:25)
[2017-02-26] MEDS: Azithromycin 500 MG in Sodium Chloride 0.9% 250 ML IVPB SCH (16:26)
[2017-02-26] MEDS: Insulin Detemir 100 Units/ml Inj SC SCH (21:33)
[2017-02-27] MEDS: Insulin Regular 100 units/ml SC SCH ×4 (06:51→22:50)
[2017-02-27] MEDS: Olopatadine 0.1% Opht SOLN OU SCH ×2 (08:34→17:09)
[2017-02-27] MEDS: Omega-3-Acid Ethyl Esters 1 GM Cap PO SCH ×3 (08:35→17:10)
[2017-02-27] MEDS: Enoxaparin 40 mg Syringe SC SCH (08:36)
[2017-02-27] MEDS: Lactulose 10 gm/15 ml Syrup PO PRN (17:09)
[2017-02-27] MEDS: Insulin Detemir 100 Units/ml Inj SC SCH (22:52)
[2017-02-28] MEDS: Insulin Regular 100 units/ml SC SCH ×4 (06:52→21:40)
[2017-02-28] MEDS: Omega-3-Acid Ethyl Esters 1 GM Cap PO SCH ×3 (08:34→16:35)
[2017-02-28] MEDS: Lactulose 10 gm/15 ml Syrup PO PRN (08:36)
[2017-02-28] MEDS: Insulin Detemir 100 Units/ml Inj SC SCH ×2 (08:37→21:41)
[2017-02-28] MEDS: Enoxaparin 40 mg Syringe SC SCH (08:38)
[2017-02-28] MEDS: Olopatadine 0.1% Opht SOLN OU SCH ×2 (08:38→16:34)
[2017-03-01] MEDS: Insulin Regular 100 units/ml SC SCH ×4 (06:47→21:11)
[2017-03-01] MEDS: Omega-3-Acid Ethyl Esters 1 GM Cap PO SCH ×3 (08:42→16:48)
[2017-03-01] MEDS: Enoxaparin 40 mg Syringe SC SCH (08:47)
[2017-03-01] MEDS: Olopatadine 0.1% Opht SOLN OU SCH ×2 (08:48→16:47)
[2017-03-01] MEDS: Insulin Detemir 100 Units/ml Inj SC SCH (21:15)
[2017-03-02] MEDS: Insulin Regular 100 units/ml SC SCH ×4 (06:57→21:59)
[2017-03-02] MEDS: Enoxaparin 40 mg Syringe SC SCH (09:29)
[2017-03-02] MEDS: Omega-3-Acid Ethyl Esters 1 GM Cap PO SCH ×3 (09:29→17:13)
[2017-03-02] MEDS: Olopatadine 0.1% Opht SOLN OU SCH ×2 (09:35→17:12)
[2017-03-02] MEDS: Insulin Detemir 100 Units/ml Inj SC SCH (21:58)
[2017-03-03] MEDS: Insulin Regular 100 units/ml SC SCH ×4 (07:03→22:30)
[2017-03-03] MEDS: Omega-3-Acid Ethyl Esters 1 GM Cap PO SCH ×3 (08:56→16:45)
[2017-03-03] MEDS: Olopatadine 0.1% Opht SOLN OU SCH ×2 (08:57→16:46)
[2017-03-03] MEDS: Insulin Detemir 100 Units/ml Inj SC SCH (22:32)
[2017-03-04] MEDS: Insulin Regular 100 units/ml SC SCH ×4 (06:45→21:12)
[2017-03-04] MEDS: Omega-3-Acid Ethyl Esters 1 GM Cap PO SCH ×3 (08:16→16:56)
[2017-03-04] MEDS: Olopatadine 0.1% Opht SOLN OU SCH ×2 (08:17→16:57)
[2017-03-04] MEDS: Insulin Detemir 100 Units/ml Inj SC SCH (21:13)
[2017-03-05] MEDS: Insulin Regular 100 units/ml SC SCH ×4 (06:43→21:24)
[2017-03-05] MEDS: Olopatadine 0.1% Opht SOLN OU SCH ×2 (09:03→16:37)
[2017-03-05] MEDS: Omega-3-Acid Ethyl Esters 1 GM Cap PO SCH ×3 (09:06→16:36)
[2017-03-05] MEDS: Insulin Detemir 100 Units/ml Inj SC SCH (21:30)
[2017-03-06] MEDS: Insulin Regular 100 units/ml SC SCH ×4 (06:53→21:12)
[2017-03-06] MEDS: Omega-3-Acid Ethyl Esters 1 GM Cap PO SCH ×3 (09:00→17:39)
[2017-03-06] MEDS: Olopatadine 0.1% Opht SOLN OU SCH ×2 (09:05→17:40)
[2017-03-06 19:37] VITALS: TEMP 97.7
[2017-03-06] MEDS: Insulin Detemir 100 Units/ml Inj SC SCH (21:12)
[2017-03-07] MEDS: Insulin Regular 100 units/ml SC SCH (07:30)
[2017-03-07 08:04] VITALS: BP 128/61; PULSE 67; O2SAT 95
[2017-03-07] MEDS: Omega-3-Acid Ethyl Esters 1 GM Cap PO SCH (09:05)
[2017-03-07] MEDS: Olopatadine 0.1% Opht SOLN OU SCH (09:09)
== END 2017-03-07 10:30 | disposition home or self-care (01) | DRG 195 ==
LOC: H.TCU 15:28
PROVIDERS: ADMIT Internal Medicine; ATTEND Internal Medicine
PROC: 3E03329 Introduction of Other Anti-infective into Peripheral Vein, Percutaneous Approach (ICD-10-PCS; principal; 2017-02-25)
PROC: F08Z4FZ Home Management Treatment using Assistive, Adaptive, Supportive or Protective Equipment (ICD-10-PCS; 2017-02-25)
DX: J15.9 Unspecified bacterial pneumonia (principal); G20 Parkinson's disease; G30.9 Alzheimer's disease, unspecified; F02.80 Dementia in other diseases classified elsewhere, unspecified severity, without behavioral disturbance, psychotic disturbance, mood disturbance, and anxiety; E11.9 Type 2 diabetes mellitus without complications; E78.00 Pure hypercholesterolemia, unspecified; I10 Essential (primary) hypertension; N40.0 Benign prostatic hyperplasia without lower urinary tract symptoms; Z79.899 Other long term (current) drug therapy; Z87.01 Personal history of pneumonia (recurrent); Z87.440 Personal history of urinary (tract) infections; Z90.49 Acquired absence of other specified parts of digestive tract; F32.9 Major depressive disorder, single episode, unspecified; H54.40 Blindness, one eye, unspecified eye; M19.90 Unspecified osteoarthritis, unspecified site; Z87.81 Personal history of (healed) traumatic fracture

== ENCOUNTER 2017-04-18 16:18 | Inpatient (IN) | payer MEDICARE, MEDICAID ==
[2017-04-18 16:18] VITALS: BMI 34.9
--- NOTE | 2017-04-18 17:16 | ED PDOC ---
HPI: General Adult Time Seen by Provider: 04/18/17 16:36 Chief Complaint (Nursing): Weakness/Neurological Deficit Chief Complaint (Provider): Dizziness and Hypotension History Per: Patient History/Exam Limitations: no limitations Onset/Duration Of Symptoms: Hrs Have you had recent travel within the past 21 days to any of the following countries: [place], [place], [place] or [place]?: No Current Symptoms Are (Timing): Still Present Additional Complaint(s): Donny Gomes, an 86 year old male, is sent to the ED from adult daycare for evaluation of dizziness and hypotension. The patient reports that he feels dizzy but denies headache, chest pain and shortness of breath. Past Medical History Vital Signs: Last Vital Signs Temp 98.4 F 04/20/17 07:26 Pulse 73 04/20/17 11:47 Resp 18 04/20/17 07:26 BP 163/65 H 04/20/17 11:47 Pulse Ox 97 04/20/17 12:21 - Medical History PMH: Alzheimer's Disease, Arthritis, Dementia, Depression, Diabetes, Fractures ( right ankle sx), HTN, Hypercholesterolemia, Parkinson's Disease, Pneumonia (2012 ) Denies: HIV, Chronic Kidney Disease - Surgical History Surgical History: Appendectomy - Family History Family History: States: Unknown Family Hx - Immunization History Hx Tetanus Toxoid Vaccination: No Hx Influenza Vaccination: No Hx Pneumococcal Vaccination: No - Home Medications Home Medications: Ambulatory Orders Medication Instructions Recorded ARIPiprazole [Abilify] 5 mg PO HS 02/19/17 Aspirin [Ecotrin] 81 mg PO DAILY 02/19/17 Atorvastatin [Lipitor] 40 mg PO HS 02/19/17 Carbidopa/Levodopa/Entacapone 1 tab PO BID 02/19/17 [Stalevo 100] Olopatadine 0.1% Opht [Patanol 1 drop EACHEYE BID 02/19/17 0.1% Opht Soln] [id number]-6-[id number] Ethyl Esters 1 GM 2 gm PO BID 02/19/17 [Lovaza] Rivastigmine 4.6 mg/24 hr [Exelon 1 patch TD DAILY 02/19/17 4.6 mg/24 hr Patch] SITagliptin [Januvia] 25 mg PO DAILY 02/19/17 Sertraline [Zoloft] 75 mg PO HS 02/19/17 Tamsulosin [Flomax] 0.4 mg PO HS 02/19/17 Insulin Detemir [Levemir] 20 units SC HS vial 02/25/17 Pregabalin [Lyrica] 50 mg PO BID #60 cap 03/06/17 Insulin Lispro [humALOG] 15 unit SC TID 04/18/17 Losartan [Cozaar] 100 mg PO DAILY 04/18/17 Paricalcitol [Zemplar] 1 mcg PO MOTH 04/18/17 amLODIPine [Norvasc] 2.5 mg PO DAILY 04/18/17 predniSONE [predniSONE Tab] 5 mg PO DAILY 04/18/17 - Allergies Allergies/Adverse Reactions: Allergies Allergy/AdvReac Type Severity Reaction Status Date / Time No Known Allergies Allergy Verified 02/19/17 17:39 Review of Systems Cardiovascular: Negative for: Chest Pain Respiratory: Negative for: Shortness of Breath Neurological: Positive for: Dizziness. Negative for: Headache Physical Exam - Reviewed Nursing Documentation Reviewed: Yes Vital Signs Reviewed: Yes - Physical Exam Appears: Positive for: Non-toxic, No Acute Distress Head Exam: Positive for: ATRAUMATIC, NORMAL INSPECTION, NORMOCEPHALIC Skin: Positive for: Normal Color, Warm, Dry. Negative for: Rash Eye Exam: Positive for: Normal appearance, EOMI, PERRL ENT: Positive for: Normal ENT Inspection. Negative for: Nasal Congestion, Tonsillar Exudate, Tonsillar Swelling Neck: Positive for: Normal, Painless ROM, Supple Cardiovascular/Chest: Positive for: Regular Rate, Rhythm, Chest Non Tender. Negative for: Tachycardia Respiratory: Positive for: Normal Breath Sounds. Negative for: Rales, Rhonchi, Wheezing, Respiratory Distress Gastrointestinal/Abdominal: Positive for: Normal Exam, Bowel Sounds, Soft. Negative for: Tenderness, Mass, Guarding, Rebound Back: Positive for: Normal Inspection. Negative for: L CVA Tenderness, R CVA Tenderness Extremity: Positive for: Normal ROM, Tenderness. Negative for: Pedal Edema, Deformity, Swelling Lymphatic: Positive for: Normal Exam. Negative for: Adenopathy Neurologic/Psych: Positive for: Alert, Oriented. Negative for: Motor/Sensory Deficits, Gait - Laboratory Results Result Diagrams: 04/20/17 05:20 04/20/17 05:20 - ECG O2 Sat by Pulse Oximetry: 97 (RA) Pulse Ox Interpretation: Normal Medical Decision Making Medical Decision Makin Initial Impression 86 y/o male presenting with dizziness and low blood pressure Initial Plan: * CT Head w/o contrast * EKG * CMP * Troponin * Udip * CBC * PTT * Prothrombin Time * CXR * Blood Culture * Accucheck * Orhto BP * Urinalysis * Reevaluation Scribe Attestation: Documented by Belkys Arguelles, acting as a scribe for Lexii Gill MD. Provider Scribe Attestation: All medical record entries made by the Scribe were at my direction and personally dictated by me. I have reviewed the chart and agree that the record accurately reflects my personal performance of the history, physical exam, medical decision making, and the department course for this patient. I have also personally directed, reviewed, and agree with the discharge instructions and disposition. Disposition - Clinical Impression Clinical Impression: Dizziness, Acute kidney injury - Patient ED Disposition Is Patient to be Admitted: Transfer of Care - Disposition Disposition Time: 19:00 Condition: STABLE Patient Signed Over To: Jagdish Ibarra
[2017-04-18 17:18] LABS: BASO # 0.1 K/uL (0.0-0.2); BASO % 0.3 % (0.0-2.0); EOS % 0.1 % (0.0-4.0); HEMATOCRIT 37.4 % (35.0-51.0); LYMPH # 1.9 K/uL (1.0-4.3); LYMPH % 12.1 % (20.0-40.0); MEAN CELL VOLUME 84.4 fl (80.0-94.0); MEAN CORPUSCULAR HEMOGLOBIN 27.2 pg (27.0-31.0); MEAN CORPUSCULAR HGB CONC 32.2 g/dL (33.0-37.0); MEAN PLATELET VOLUME 8.1 fl (7.2-11.7); MONO # 1.1 K/uL (0.0-0.8); NEUT # 12.8 K/uL (1.8-7.0); NEUT % 80.5 % (50.0-75.0); RED CELL DISTRIBUTION WIDTH 17.8 % (11.5-14.5); WHITE BLOOD COUNT 15.9 K/uL (4.8-10.8)
--- NOTE | 2017-04-18 17:40 | CT ---
PROCEDURE: CT HEAD WITHOUT CONTRAST. HISTORY: Vertigo COMPARISON: 02/19/2017 TECHNIQUE: Axial computed tomography images were obtained through the head/brain without intravenous contrast. Radiation dose: Total exam DLP = 869.06 mGy-cm. This CT exam was performed using one or more of the following dose reduction techniques: Automated exposure control, adjustment of the mA and/or kV according to patient size, and/or use of iterative reconstruction technique. FINDINGS: HEMORRHAGE: No intracranial hemorrhage. BRAIN: No mass effect or edema. Mild diffuse age-appropriate atrophy. Please note that evaluation of the posterior fossa is somewhat limited due to patient motion artifact. VENTRICLES: Unremarkable. No hydrocephalus. CALVARIUM: Unremarkable. PARANASAL SINUSES: Unremarkable as visualized. No significant inflammatory changes. MASTOID AIR CELLS: Unremarkable as visualized. No inflammatory changes. OTHER FINDINGS: None. IMPRESSION: Normal CT of the Head. No intracranial mass, hemorrhage or evidence of acute infarct.
--- NOTE | 2017-04-18 17:46 | RAD ---
HISTORY: Dizziness COMPARISON: 02/24/2017 FINDINGS: LUNGS: Previous left basilar opacity has resolved. There is no infiltrate. There is linear scar/ atelectasis at the left lung base. PLEURA: No significant pleural effusion identified, no pneumothorax apparent. CARDIOVASCULAR: Normal. OSSEOUS STRUCTURES: No significant abnormalities. VISUALIZED UPPER ABDOMEN: Normal. OTHER FINDINGS: None. IMPRESSION: Minimal left basilar linear scar/ atelectasis. Otherwise unremarkable.
[2017-04-18 17:53] LABS: ALB/GLOB RATIO 1.4 (1.0-2.1); ALKALINE PHOSPHATASE 96 U/L (38-126); ALT/SGPT 33 U/L (21-72); AST/SGOT 23 U/L (17-59); BILIRUBIN,TOTAL 0.3 mg/dl (0.2-1.3); BLOOD UREA NITROGEN 42 mg/dl (9-20); CALCIUM 9.7 mg/dL (8.4-10.2); CARBON DIOXIDE 27 mmol/L (22-30); CHLORIDE 105 mmol/L (98-107); GFR AFRICAN-AMERICAN 41; GLUCOSE,RANDOM 138 mg/dL (75-110); POTASSIUM 4.2 MMOL/L (3.6-5.0); SODIUM 143 mmol/l (132-148); TOTAL PROTEIN 7.6 G/DL (6.3-8.2)
[2017-04-18] MEDS ORDERED: Sodium Chloride 0.9% 1,000 ML IV STA (19:04)
--- NOTE | 2017-04-18 19:20 | ED PDOC ---
- Laboratory Results Result Diagrams: 04/18/17 17:13 04/18/17 17:13 - ECG O2 Sat by Pulse Oximetry: 97 (RA) Pulse Ox Interpretation: Normal Medical Decision Making Medical Decision Making: Patient signed out to provider at [address] Gill pending labs. 9PM: Pt. w/ EVA on labs. Case discussed with Dr. Barraza, agrees to admission for EVA and dehydration. Scribe Attestation Documented by Belkys Arguelles acting as a scribe for Jagdish Ibarra MD. Provider Attestation All medical record entries made by the Scribe were at my direction and personally dictated by me. I have reviewed the chart and agree that the record accurately reflects my personal performance of the history, physical exam, medical decision making, and the department course for this patient. I have also personally directed, reviewed, and agree with the discharge instructions and disposition. Disposition - Clinical Impression Clinical Impression: Dizziness, Acute kidney injury - POA Present On Arrival: None - Disposition Disposition: Admitted as In-Patient Disposition Time: 21:05 Condition: STABLE Forms: [employer] (Telugu)
[2017-04-18 19:45] LABS: VENOUS BLOOD GAS BASE EXCESS 1.9 mmol/L (0.0-2.0); VENOUS BLOOD GAS MODE ROOM AIR; VENOUS BLOOD GAS PCO2 55 mmHg (40-60); VENOUS BLOOD PH 7.33 (7.32-7.43)
[2017-04-18 20:00] LABS: RBC URINE 3 /hpf (0-3); URINE BILIRUBIN NEGATIVE (NEGATIVE); URINE BLOOD NEGATIVE (NEGATIVE); URINE COLOR AMBER (YELLOW); URINE GLUCOSE (UA) 50 mg/dL (Normal); URINE KETONE TRACE mg/dL (NEGATIVE); URINE LEUKOCYTE ESTERASE NEG Leu/uL (Negative); URINE PROTEIN 100 mg/dL (NEGATIVE); URINE UROBILINOGEN 0.2-1.0 mg/dL (0.2-1.0); WBC URINE 3 /hpf (0-5)
[2017-04-19] MEDS: Insulin Detemir 100 Units/ml Inj SC SCH ×2 (00:54→21:08)
[2017-04-19] MEDS: Ciprofloxacin 400mg/200ml D5W 400 MG/200 ML BAG IVPB SCH ×3 (00:55→20:50)
[2017-04-19 09:19] LABS: HEMATOCRIT 33.5 % (35.0-51.0); MEAN CELL VOLUME 83.1 fl (80.0-94.0); MEAN CORPUSCULAR HEMOGLOBIN 27.8 pg (27.0-31.0); MEAN CORPUSCULAR HGB CONC 33.4 g/dL (33.0-37.0); RED CELL DISTRIBUTION WIDTH 17.6 % (11.5-14.5); WHITE BLOOD COUNT 10.6 K/uL (4.8-10.8)
--- NOTE | 2017-04-19 09:31 | HP ---
CHIEF COMPLAINT: Weakness, dizziness, almost passed out. HISTORY OF PRESENT ILLNESS: This is an 86-year-old male, known case of hypertension, elevated cholesterol, diabetes, dementia, arthritis, obesity, Parkinson's disease, who was at [facility] day [facility] [place] and was found to be very dizzy and almost passed out and with low blood pressure, so the patient was sent to emergency room where the patient was resuscitated with IV fluid and found to be dehydrated and admitted for further management. At present, the patient is sleepy, arousable, feels okay. Denies any specific complaint of chest pain or shortness of breath. PAST MEDICAL HISTORY: Significant for hypertension, diabetes, elevated cholesterol, anxiety, Alzheimer's disease, Parkinson's disease. PAST SURGICAL HISTORY: Remarkable for ankle fracture and appendectomy. PERSONAL HISTORY: The patient is nonsmoker, nondrinker. No substance abuse. MEDICATIONS: The patient is on multiple medications, which is as per reconciliation sheet, which was reviewed and ordered. ALLERGIES: THE PATIENT IS NOT ALLERGIC TO ANY MEDICATION. FAMILY HISTORY: Noncontributory. REVIEW OF SYSTEMS: Positive for dizziness and generalized weakness. Review of systems otherwise is negative for headache, dizziness, syncope, loss of consciousness, chest pain, shortness of breath, nausea, vomiting, diarrhea, constipation, any new joint or extremity pain. Review of systems of all other organ system is unremarkable. PHYSICAL EXAMINATION: GENERAL: Well-built, well-nourished, overweight 86-year-old male, in no acute distress. VITAL SIGNS: Temperature afebrile, pulse 65, respirations 19, blood pressure 138/60. There are no orthostatic changes. Saturation is 97%. HEENT: Pupils reacting to light. No JVD. No thyromegaly. No lymphadenopathy. No nystagmus. Normocephalic, atraumatic skull. HEART: S1 and S2. Normal and regular. No significant murmur, gallop or rub is heard. LUNGS: Shows good bilateral air exchange. No rales or rhonchi. ABDOMEN: Soft, nontender. No organomegaly. No fluid. Bowel sounds are plus. EXTREMITIES: No edema. No calf swelling. No tenderness. No acute ischemia. CENTRAL NERVOUS SYSTEM: The patient is alert, awake, oriented. There is no sign of any acute gross focal motor or sensory neurological deficit. EXTERNAL GENITALIA AND RECTAL: Deferred on this patient. DIAGNOSTIC DATA: Available diagnostic data reviewed. WBC 15.9, hemoglobin 12.1, hematocrit 37.4, platelet 277. Lactic acid is 1.3, sodium 143, potassium 4.3, chloride 105, bicarb 27, BUN 42, creatinine 1.9. Accu-Cheks are 138, 201, 209. SMA-12 is unremarkable. Urinalysis is negative. CAT scan of head is failed to reveal any acute hemorrhage or stroke. Chest x-ray is clear. ADMITTING IMPRESSION: Near syncope, dehydration, hypertension by history, diabetes, elevated cholesterol, Parkinson's disease, dementia. PLAN: As ordered. Case and plan discussed with the patient. Montana Barraza MD
[2017-04-19 09:39] LABS: CALCIUM 8.7 mg/dL (8.4-10.2); POTASSIUM 4.5 MMOL/L (3.6-5.0)
[2017-04-19] MEDS: Sodium Chloride 0.9% 1,000 ML IV SCH ×2 (10:04→17:51)
[2017-04-19] MEDS: Enoxaparin 40 mg Syringe SC SCH (10:06)
[2017-04-19] MEDS: Omega-3-Acid Ethyl Esters 1 GM Cap PO SCH ×2 (10:06→17:50)
[2017-04-19] MEDS: Olopatadine 0.1% Opht SOLN OD SCH ×2 (10:10→17:50)
[2017-04-19] MEDS: Insulin Lispro (humaLOG) 100 Units/ml Inj SC SCH ×3 (10:23→17:49)
--- NOTE | 2017-04-19 16:36 | CP.PCM.CON ---
History of Present Illness - History of Present Illness History of Present Illness: Podiatry Consult Note- Dr. Herrera 86 year old [place] speaking male seen at bedside concerning dry fissuring feet. Utilized [facility]. Pt denies pedal pain or issues at this time, though reports that 15 days ago he cut his right forefoot at home. He attests this minor laceration has been healing with no issues af drainage, malodor, and accompanying redness, fever, or chills. Pt states he sees a foot doctor who prescribed him moisturizing cream for use to his feet. Pt denies pedal issues at this time. PMH: Alzheimer's Disease, Arthritis, Dementia, Depression, Diabetes, Fractures ( right ankle sx), HTN, Hypercholesterolemia, Parkinson's Disease, Pneumonia (2012 ) All: KNDA Past Patient History - Infectious Disease Hx of Infectious Diseases: None - Past Medical History & Family History Past Medical History?: Yes - Past Social History Smoking Status: Never Smoked - CARDIAC Hx Cardiac Disorders: Yes Hx Hypercholesterolemia: Yes Hx Hypertension: Yes - PULMONARY Hx Respiratory Disorders: Yes Hx Pneumonia: Yes (2012) - NEUROLOGICAL Hx Neurological Disorder: Yes Hx Alzheimer's Disease: Yes Hx Dementia: Yes Hx Parkinson's Disease: Yes Hx Syncope: Yes - HEENT Hx HEENT Problems: Yes - RENAL Hx Chronic Kidney Disease: No - ENDOCRINE/METABOLIC Hx Endocrine Disorders: Yes Hx Diabetes Mellitus Type 2: Yes - HEMATOLOGICAL/ONCOLOGICAL Hx Blood Disorders: No Hx AIDS: No Hx Human Immunodeficiency Virus (HIV): No - INTEGUMENTARY Hx Dermatological Problems: No - MUSCULOSKELETAL/RHEUMATOLOGICAL Hx Musculoskeletal Disorders: Yes Hx Arthritis: Yes Hx Falls: Yes Hx Fractures: Yes - GASTROINTESTINAL Hx Gastrointestinal Disorders: No - GENITOURINARY/GYNECOLOGICAL Hx Genitourinary Disorders: Yes Hx Prostate Problems: Yes (BPH) Hx Urinary Tract Infection: Yes - PSYCHIATRIC Hx Psychophysiologic Disorder: Yes Hx Depression: Yes Hx Substance Use: No - SURGICAL HISTORY Hx Surgeries: Yes Hx Appendectomy: Yes - ANESTHESIA Hx Anesthesia: Yes Hx Anesthesia Reactions: No Hx Malignant Hyperthermia: No Has any member of the family had a problem w/ anesthesia?: No Meds Allergies/Adverse Reactions: Allergies Allergy/AdvReac Type Severity Reaction Status Date / Time No Known Allergies Allergy Verified 02/19/17 17:39 - Medications Medications: Current Medications Amlodipine Besylate (Norvasc) 2.5 mg PO DAILY [facility] Last Admin: 04/19/17 10:07 Dose: 2.5 mg Aripiprazole (Abilify) 5 mg PO HS [facility] Last Admin: 04/19/17 00:52 Dose: 5 mg Aspirin (Ecotrin) 81 mg PO DAILY [facility] Last Admin: 04/19/17 10:06 Dose: 81 mg Atorvastatin Calcium (Lipitor) 40 mg PO HS [facility] Last Admin: 04/19/17 00:52 Dose: 40 mg Enoxaparin Sodium (Lovenox) 40 mg SC DAILY [facility] PRN Reason: Protocol Last Admin: 04/19/17 10:06 Dose: 40 mg Home Med (Carbidopa/Levodopa/Entacapone [Stalevo 100]) 1 tab PO BID [facility] Home Med (Paricalcitol [Zemplar]) 1 mcg PO MOTH [facility] Ciprofloxacin (Cipro 400mg/200ml Dsw) 400 mg in 200 mls @ 200 mls/hr IVPB Q12 [facility] PRN Reason: Protocol Last Admin: 04/19/17 10:05 Dose: 200 mls/hr Sodium Chloride (Sodium Chloride 0.9%) 1,000 mls @ 100 mls/hr IV .Q10H [facility] Stop: 04/20/17 07:06 Last Admin: 04/19/17 10:04 Dose: 100 mls/hr Insulin Detemir (Levemir) 20 units SC HS [facility] Last Admin: 04/19/17 00:54 Dose: 20 units Insulin Human Lispro (Humalog) 15 units SC TID [facility] Last Admin: 04/19/17 10:23 Dose: 15 unit Lactic Acid (Lac-Hydrin 12% Lotion (225 G)) 1 applic TOP BID [facility] Losartan Potassium (Cozaar) 100 mg PO DAILY [facility] Last Admin: 04/19/17 10:09 Dose: 100 mg Olopatadine HCl (Patanol 0.1% Opht Soln) 1 drop OD BID [facility] Last Admin: 04/19/17 10:10 Dose: 1 drop Tawld-7-Xary Ethyl Esters (Lovaza) 2 gm PO BID [facility] Last Admin: 04/19/17 10:06 Dose: 2 gm Prednisone (Prednisone Tab) 2.5 mg PO DAILY [facility] Last Admin: 04/19/17 10:07 Dose: 2.5 mg Pregabalin (Lyrica) 50 mg PO BID [facility] Last Admin: 04/19/17 09:35 Dose: 50 mg Rivastigmine (Exelon 4.6 Mg/24 Hr Patch) 1 patch TD DAILY [facility] Last Admin: 04/19/17 10:08 Dose: 1 patch Sertraline HCl (Zoloft) 75 mg PO HS [facility] Last Admin: 04/19/17 00:53 Dose: 75 mg Sitagliptin Phosphate (Januvia) 25 mg PO DAILY [facility] Last Admin: 04/19/17 10:10 Dose: 25 mg Tamsulosin HCl (Flomax) 0.4 mg PO HS [facility] Last Admin: 04/19/17 00:58 Dose: 0.4 mg Physical Exam - Constitutional Appears: Well, Non-toxic, No Acute Distress - Extremities Exam Additional comments: LE focused exam Vasc: DP/PT pulses palpable 2/4 b/l. Skin temperature runs warm to warm from proximal to distal, within normal limits. CFT < 5 seconds to all digits b/l. Pedal hair growth appreciated. No edema noted b/l Neuro: Epicritic and protective sensation grossly diminshed b/l Derm: Mild plantar xerosis noted bilaterally, no significant deep fissuring noted. Plantar-medial distal 1st metatarsal 4cm long resolving laceration with granular base undergoing re-epitlialization with hyperkeratotic margins. This stie is absent erythema and acute signs of infection. No open lesions, macerations, xerosis, abnormal pigmentation or abnormal growths noted. MSK: No POP to b/l LE. MMT 5/5 on inversion, eversion, dorsiflexion and plantarflexion of feet b/l. ROM WNL to all major joints of LE - Neurological Exam Neurological exam: Alert, Oriented x3 - Psychiatric Exam Psychiatric exam: Normal Affect, Normal Mood Results - Vital Signs Recent Vital Signs: Last Vital Signs Temp 98.1 F 04/19/17 16:20 Pulse 78 04/19/17 16:20 Resp 20 04/19/17 16:20 BP 138/68 04/19/17 16:20 Pulse Ox 98 04/19/17 16:20 - Labs Result Diagrams: 04/19/17 08:00 04/19/17 08:00 Labs: Laboratory Results - last 24 hr 04/18/17 04/18/17 04/18/17 17:13 17:13 17:13 WBC 15.9 H D RBC 4.43 Hgb 12.1 Hct 37.4 MCV 84.4 MCH 27.2 MCHC 32.2 L RDW 17.8 H Plt Count 277 MPV 8.1 Neut % (Auto) 80.5 H Lymph % (Auto) 12.1 L [place] % (Auto) 7.0 Eos % (Auto) 0.1 Baso % (Auto) 0.3 Neut # 12.8 H Lymph # 1.9 [place] # 1.1 H Eos # 0.0 Baso # 0.1 PT 11.3 INR 1.0 APTT 25.0 L pO2 VBG pH VBG pCO2 VBG HCO3 VBG Total CO2 VBG O2 Sat (Calc) VBG Base Excess VBG Potassium Glucose Lactate FiO2 Sodium 143 Potassium 4.2 Chloride 105 Carbon Dioxide 27 Anion Gap 15 BUN 42 H Creatinine 1.9 H Est GFR ( Amer) 41 Est GFR (Non-Af Amer) 34 POC Glucose (mg/dL) Random Glucose 138 H Calcium 9.7 Total Bilirubin 0.3 AST 23 ALT 33 Alkaline Phosphatase 96 Troponin I < 0.0120 Total Protein 7.6 Albumin 4.4 Globulin 3.2 Albumin/Globulin Ratio 1.4 Venous Blood Potassium Urine Color Urine Clarity Urine pH Ur Specific [place] Urine Protein Urine Glucose (UA) Urine Ketones Urine Blood Urine Nitrate Urine Bilirubin Urine Urobilinogen Ur Leukocyte Esterase Urine RBC (Auto) Urine Microscopic WBC Ur Squamous Epith Cells Hyaline Casts 04/18/17 04/18/17 04/18/17 17:14 19:28 19:37 WBC RBC Hgb Hct MCV MCH MCHC RDW Plt Count MPV Neut % (Auto) Lymph % (Auto) [place] % (Auto) Eos % (Auto) Baso % (Auto) Neut # Lymph # [place] # Eos # Baso # PT INR APTT pO2 21 L VBG pH 7.33 VBG pCO2 55 VBG HCO3 24.6 VBG Total CO2 30.7 H VBG O2 Sat (Calc) 32.5 L VBG Base Excess 1.9 VBG Potassium 4.5 Glucose 182 H Lactate 1.3 FiO2 21.0 Sodium 140.0 Potassium Chloride 106.0 Carbon Dioxide Anion Gap BUN Creatinine Est GFR ( Amer) Est GFR (Non-Af Amer) POC Glucose (mg/dL) 173 H Random Glucose Calcium Total Bilirubin AST ALT Alkaline Phosphatase Troponin I Total Protein Albumin Globulin Albumin/Globulin Ratio Venous Blood Potassium 4.5 Urine Color Aimee Urine Clarity Slighty-cloudy Urine pH 5.0 Ur Specific [place] 1.021 Urine Protein 100 Urine Glucose (UA) 50 Urine Ketones Trace Urine Blood Negative Urine Nitrate Negative Urine Bilirubin Negative Urine Urobilinogen 0.2-1.0 Ur Leukocyte Esterase Neg Urine RBC (Auto) 3 Urine Microscopic WBC 3 Ur Squamous Epith Cells < 1 Hyaline Casts 6-10 H 04/18/17 04/19/17 04/19/17 22:39 05:51 08:00 WBC 10.6 RBC 4.03 L Hgb 11.2 L Hct 33.5 L MCV 83.1 MCH 27.8 MCHC 33.4 RDW 17.6 H Plt Count 244 MPV Neut % (Auto) Lymph % (Auto) [place] % (Auto) Eos % (Auto) Baso % (Auto) Neut # Lymph # [place] # Eos # Baso # PT INR APTT pO2 VBG pH VBG pCO2 VBG HCO3 VBG Total CO2 VBG O2 Sat (Calc) VBG Base Excess VBG Potassium Glucose Lactate FiO2 Sodium Potassium Chloride Carbon Dioxide Anion Gap BUN Creatinine Est GFR ( Amer) Est GFR (Non-Af Amer) POC Glucose (mg/dL) 201 H 209 H Random Glucose Calcium Total Bilirubin AST ALT Alkaline Phosphatase Troponin I Total Protein Albumin Globulin Albumin/Globulin Ratio Venous Blood Potassium Urine Color Urine Clarity Urine pH Ur Specific [place] Urine Protein Urine Glucose (UA) Urine Ketones Urine Blood Urine Nitrate Urine Bilirubin Urine Urobilinogen Ur Leukocyte Esterase Urine RBC (Auto) Urine Microscopic WBC Ur Squamous Epith Cells Hyaline Casts 04/19/17 04/19/17 04/19/17 08:00 11:25 16:05 WBC RBC Hgb Hct MCV MCH MCHC RDW Plt Count MPV Neut % (Auto) Lymph % (Auto) [place] % (Auto) Eos % (Auto) Baso % (Auto) Neut # Lymph # [place] # Eos # Baso # PT INR APTT pO2 VBG pH VBG pCO2 VBG HCO3 VBG Total CO2 VBG O2 Sat (Calc) VBG Base Excess VBG Potassium Glucose Lactate FiO2 Sodium 139 Potassium 4.5 Chloride 106 Carbon Dioxide 28 Anion Gap 10 BUN 33 H Creatinine 1.4 Est GFR ( Amer) 58 Est GFR (Non-Af Amer) 48 POC Glucose (mg/dL) 217 H 182 H Random Glucose 142 H Calcium 8.7 Total Bilirubin AST ALT Alkaline Phosphatase Troponin I Total Protein Albumin Globulin Albumin/Globulin Ratio Venous Blood Potassium Urine Color Urine Clarity Urine pH Ur Specific [place] Urine Protein Urine Glucose (UA) Urine Ketones Urine Blood Urine Nitrate Urine Bilirubin Urine Urobilinogen Ur Leukocyte Esterase Urine RBC (Auto) Urine Microscopic WBC Ur Squamous Epith Cells Hyaline Casts Assessment & Plan - Assessment and Plan (Free Text) Assessment: 86 year old male with xerosis secondary to DM and resolving soft tissue abrasion. Plan: Pt seen and evaluated. Chart, labs, and vitals reviewed. Discussed with attending Dr. Herrera who endorsed the following plan. Ordered Lac-hydrin to be applied to feet while inhouse. Right wound site dressed with lachyrdin, pertrolum gauze, and DSD. Wound is stable. Pt is stable from podiatry standpoint. Podiatry signing off, please re-consult as needed. Thank you for allowing podiatry service to participate in the care of this patient. - Date & Time Date: 04/19/17 Time: 13:15
[2017-04-20] MEDS: Sodium Chloride 0.9% 1,000 ML IV SCH (03:30)
[2017-04-20 07:11] LABS: HEMATOCRIT 32.8 % (35.0-51.0); MEAN CELL VOLUME 83.1 fl (80.0-94.0); MEAN CORPUSCULAR HEMOGLOBIN 27.8 pg (27.0-31.0); MEAN CORPUSCULAR HGB CONC 33.5 g/dL (33.0-37.0); RED CELL DISTRIBUTION WIDTH 17.3 % (11.5-14.5)
[2017-04-20 07:37] LABS: ALB/GLOB RATIO 1.2 (1.0-2.1); ALKALINE PHOSPHATASE 79 U/L (38-126); ALT/SGPT 36 U/L (21-72); AST/SGOT 23 U/L (17-59); BILIRUBIN,TOTAL 0.5 mg/dl (0.2-1.3); BLOOD UREA NITROGEN 25 mg/dl (9-20); CALCIUM 8.2 mg/dL (8.4-10.2); CARBON DIOXIDE 26 mmol/L (22-30); CHLORIDE 108 mmol/L (98-107); GFR AFRICAN-AMERICAN > 60; GLUCOSE,RANDOM 75 mg/dL (75-110); POTASSIUM 4.2 MMOL/L (3.6-5.0); SODIUM 143 mmol/l (132-148); TOTAL PROTEIN 6.3 G/DL (6.3-8.2)
--- NOTE | 2017-04-20 08:09 | PN ---
DATE: 04/20/2017 SUBJECTIVE: The patient is seen and examined. Interim events noted. The patient remains in regular medical floor. The patient is sleeping, arousable. Feels better. No dizziness. No loss of consciousness. No chest pain, shortness of breath related. PHYSICAL EXAMINATION: GENERAL: The patient is in no acute distress. VITAL SIGNS: Stable. HEART: S1 and S2, normal and regular. LUNGS: Good bilateral air exchange. ABDOMEN: Soft, nontender. EXTREMITIES: No edema. No calf swelling. No tenderness. No acute ischemia. CENTRAL NERVOUS SYSTEM: Essentially unchanged. DIAGNOSTIC DATA: Available diagnostic data reviewed. BUN is down to 32. ASSESSMENT AND PLAN: Overall, the patient is clinically stable. Dehydration is improving. Plan as ordered. Montana Barraza MD
[2017-04-20] MEDS: Omega-3-Acid Ethyl Esters 1 GM Cap PO SCH ×2 (08:25→16:15)
[2017-04-20] MEDS: LEVODOPA PO SCH ×2 (08:27→16:16)
[2017-04-20] MEDS: ENTACAPONE PO SCH ×2 (08:27→16:16)
[2017-04-20] MEDS: CARBIDOPA PO SCH ×2 (08:27→16:16)
[2017-04-20] MEDS: Olopatadine 0.1% Opht SOLN OD SCH ×2 (08:27→16:14)
[2017-04-20] MEDS: Insulin Lispro (humaLOG) 100 Units/ml Inj SC SCH ×3 (08:28→16:14)
[2017-04-20] MEDS: Enoxaparin 40 mg Syringe SC SCH (08:29)
[2017-04-20] MEDS: Ciprofloxacin 400mg/200ml D5W 400 MG/200 ML BAG IVPB SCH ×2 (08:29→20:18)
[2017-04-20] MEDS: Insulin Detemir 100 Units/ml Inj SC SCH (21:55)
[2017-04-21 06:12] LABS: HEMATOCRIT 34.3 % (35.0-51.0); MEAN CELL VOLUME 85.4 fl (80.0-94.0); MEAN CORPUSCULAR HGB CONC 32.8 g/dL (33.0-37.0); WHITE BLOOD COUNT 9.1 K/uL (4.8-10.8)
[2017-04-21 06:31] LABS: ALB/GLOB RATIO 1.2 (1.0-2.1); ALKALINE PHOSPHATASE 80 U/L (38-126); ALT/SGPT 35 U/L (21-72); AST/SGOT 21 U/L (17-59); BILIRUBIN,TOTAL 0.5 mg/dl (0.2-1.3); BLOOD UREA NITROGEN 22 mg/dl (9-20); CALCIUM 8.5 mg/dL (8.4-10.2); CARBON DIOXIDE 30 mmol/L (22-30); CHLORIDE 106 mmol/L (98-107); GFR AFRICAN-AMERICAN > 60; GLUCOSE,RANDOM 98 mg/dL (75-110); POTASSIUM 4.7 MMOL/L (3.6-5.0); SODIUM 141 mmol/l (132-148); TOTAL PROTEIN 6.6 G/DL (6.3-8.2)
[2017-04-21] MEDS: LEVODOPA PO SCH ×2 (08:34→16:08)
[2017-04-21] MEDS: ENTACAPONE PO SCH ×2 (08:34→16:08)
[2017-04-21] MEDS: Omega-3-Acid Ethyl Esters 1 GM Cap PO SCH ×2 (08:34→16:08)
[2017-04-21] MEDS: CARBIDOPA PO SCH ×2 (08:34→16:08)
[2017-04-21] MEDS: Olopatadine 0.1% Opht SOLN OD SCH ×2 (08:35→16:07)
[2017-04-21] MEDS: Enoxaparin 40 mg Syringe SC SCH (08:35)
[2017-04-21] MEDS: Ciprofloxacin 400mg/200ml D5W 400 MG/200 ML BAG IVPB SCH ×2 (08:39→22:13)
--- NOTE | 2017-04-21 09:20 | PQF GENQUE ---
Dr. KYLE, In agreement with ER documentation of Acute Kidney Injury VERSUS Acute Kidney Injury ruled out? OR Clinically unable to determine ER MD; 9PM: Pt. w/ EVA on labs. Case discussed with Dr. Kyle, agrees to admission for EVA and dehydration. Clinical Impression: Dizziness, Acute kidney injury H and P: at adult [facility] center and was found to be very dizzy and almost passed out and with low blood pressure, so the patient was sent to emergency room where the patient was resuscitated with IV fluid and found to be dehydrated and admitted for further management. Admitting Impression : Near syncope, dehydration, hypertension by history, diabetes, elevated cholesterol, Parkinson's disease, dementia. BUN:42->33->25->22 Creatinine:1.9->1.4->1.3 GFR:41/34->58/48-> >60/53 IVF 100ccs./hr. This form is a permanent part of the medical record Clarification of your documentation is requested to better reflect the severity of illness and intensity of treatment of your patient. Indicators present [] Specify: [] [] Specify: [] [] Specify: [] [] Specify: [] Location in the medical record that reflects the above clinical findings: [] Treatment Provided: [] PHYSICIAN'S RESPONSE Based on your medical judgment of the clinical indicators outlined above please clarify the following: [] Practitioner response [] If unable to determine, please check the box, sign and date. Present On Admission (POA) Indicator: [] Present at the time of admission [] Not present at the time of admission [] Clinically Undetermined In responding to this query, please exercise your independent professional judgment. The fact that a question is asked does not imply that any particular answer is desired or expected. Thank you for your clarification on this documentation. If you have any questions please call. * Thank you, Hannah Wheeler RN ext. #[phone] MTDD
[2017-04-21] MEDS: Insulin Lispro (humaLOG) 100 Units/ml Inj SC SCH ×4 (11:29→16:11)
--- NOTE | 2017-04-21 11:53 | PN ---
DATE: 04/21/2017 SUBJECTIVE: Patient seen and examined. Interim events noted. Patient remains in medical floor. Feels okay. Doing his ADL without assistance. No chest pain. No shortness of breath. No dizziness. No loss of consciousness. PHYSICAL EXAMINATION: GENERAL: Patient is in no acute distress. VITAL SIGNS: Stable. HEART: S1 and S2, normal and regular. LUNGS: Good bilateral air exchange. ABDOMEN: Soft, nontender. EXTREMITIES: No edema. No calf swelling. No tenderness. No acute ischemia. CENTRAL NERVOUS SYSTEM: Essentially unchanged. DIAGNOSTIC DATA: Available diagnostic data reviewed. BUN and creatinine are improving. ASSESSMENT AND PLAN: Overall, patient is clinically better, doing his activities of daily living without any dizziness. Plan as ordered. Montana Barraza MD
--- NOTE | 2017-04-21 12:42 | CARD ---
APPROVED REPORT EKG Measurement Heart [id number] <Conclusion> Normal sinus rhythm RSR' or QR pattern in V1 suggests right ventricular conduction delay Borderline ECG
[2017-04-21] MEDS: Insulin Detemir 100 Units/ml Inj SC SCH (22:20)
[2017-04-22 00:57] VITALS: RESP 20
[2017-04-22 06:31] LABS: HEMATOCRIT 34.4 % (35.0-51.0); MEAN CELL VOLUME 84.3 fl (80.0-94.0); MEAN CORPUSCULAR HGB CONC 33.2 g/dL (33.0-37.0); RED CELL DISTRIBUTION WIDTH 17.4 % (11.5-14.5); WHITE BLOOD COUNT 10.3 K/uL (4.8-10.8)
[2017-04-22 06:42] LABS: ALB/GLOB RATIO 1.2 (1.0-2.1); ALKALINE PHOSPHATASE 82 U/L (38-126); ALT/SGPT 34 U/L (21-72); AST/SGOT 28 U/L (17-59); BILIRUBIN,TOTAL 0.6 mg/dl (0.2-1.3); BLOOD UREA NITROGEN 26 mg/dl (9-20); CALCIUM 8.4 mg/dL (8.4-10.2); CARBON DIOXIDE 29 mmol/L (22-30); CHLORIDE 102 mmol/L (98-107); GFR AFRICAN-AMERICAN > 60; GLUCOSE,RANDOM 155 mg/dL (75-110); POTASSIUM 4.7 MMOL/L (3.6-5.0); SODIUM 138 mmol/l (132-148); TOTAL PROTEIN 6.7 G/DL (6.3-8.2)
[2017-04-22 07:33] VITALS: BP 117/68; PULSE 68; TEMP 98.5; O2SAT 97
[2017-04-22] MEDS: Ciprofloxacin 400mg/200ml D5W 400 MG/200 ML BAG IVPB SCH (08:45)
[2017-04-22] MEDS: Omega-3-Acid Ethyl Esters 1 GM Cap PO SCH (08:46)
[2017-04-22] MEDS: Enoxaparin 40 mg Syringe SC SCH (08:46)
[2017-04-22] MEDS: Insulin Lispro (humaLOG) 100 Units/ml Inj SC SCH (08:49)
[2017-04-22] MEDS: Olopatadine 0.1% Opht SOLN OD SCH (08:51)
--- NOTE | 2017-04-22 08:59 | CP.PCM.DIS ---
Provider - Provider Date of Admission: 04/18/17 21:04 Attending physician: Montana Barraza MD Time Spent in preparation of Discharge (in minutes): 35 Diagnosis - Discharge Diagnosis (1) Dehydration Status: Resolved (2) Acute kidney injury Status: Resolved Hospital Course - Lab Results Lab Results: Micro Results 04/18/17 17:13 Blood Blood Culture - Preliminary NO GROWTH AFTER 3 DAYS Most Recent Lab Values WBC 10.3 K/uL (4.8-10.8) 04/22/17 05:25 RBC 4.08 Mil/uL (4.40-5.90) L 04/22/17 05:25 Hgb 11.4 g/dL (12.0-18.0) L 04/22/17 05:25 Hct 34.4 % (35.0-51.0) L 04/22/17 05:25 MCV 84.3 fl (80.0-94.0) 04/22/17 05:25 MCH 28.0 pg (27.0-31.0) 04/22/17 05:25 MCHC 33.2 g/dL (33.0-37.0) 04/22/17 05:25 RDW 17.4 % (11.5-14.5) H 04/22/17 05:25 Plt Count 220 K/uL (130-400) 04/22/17 05:25 MPV 8.1 fl (7.2-11.7) 04/18/17 17:13 Neut % (Auto) 80.5 % (50.0-75.0) H 04/18/17 17:13 Lymph % (Auto) 12.1 % (20.0-40.0) L 04/18/17 17:13 [place]osey % (Auto) 7.0 % (0.0-10.0) 04/18/17 17:13 Eos % (Auto) 0.1 % (0.0-4.0) 04/18/17 17:13 Baso % (Auto) 0.3 % (0.0-2.0) 04/18/17 17:13 Neut # 12.8 K/uL (1.8-7.0) H 04/18/17 17:13 Lymph # 1.9 K/uL (1.0-4.3) 04/18/17 17:13 [place]osey # 1.1 K/uL (0.0-0.8) H 04/18/17 17:13 Eos # 0.0 K/uL (0.0-0.7) 04/18/17 17:13 Baso # 0.1 K/uL (0.0-0.2) 04/18/17 17:13 PT 11.3 Seconds (9.8-13.1) 04/18/17 17:13 INR 1.0 (0.9-1.2) 04/18/17 17:13 APTT 25.0 Seconds (25.6-37.1) L 04/18/17 17:13 pO2 21 mm/Hg (30-55) L 04/18/17 19:37 VBG pH 7.33 (7.32-7.43) 04/18/17 19:37 VBG pCO2 55 mmHg (40-60) 04/18/17 19:37 VBG HCO3 24.6 mmol/L 04/18/17 19:37 VBG Total CO2 30.7 mmol/L (22-28) H 04/18/17 19:37 VBG O2 Sat (Calc) 32.5 % (40-65) L 04/18/17 19:37 VBG Base Excess 1.9 mmol/L (0.0-2.0) 04/18/17 19:37 VBG Potassium 4.5 mmol/L (3.6-5.2) 04/18/17 19:37 Sodium 140.0 mmol/L (132-148) 04/18/17 19:37 Chloride 106.0 mmol/L (98-107) 04/18/17 19:37 Glucose 182 mg/dL (75-110) H 04/18/17 19:37 Lactate 1.3 mmol/L (0.7-2.1) 04/18/17 19:37 FiO2 21.0 % 04/18/17 19:37 Sodium 138 mmol/l (132-148) 04/22/17 05:25 Potassium 4.7 MMOL/L (3.6-5.0) 04/22/17 05:25 Chloride 102 mmol/L (98-107) 04/22/17 05:25 Carbon Dioxide 29 mmol/L (22-30) 04/22/17 05:25 Anion Gap 12 (10-20) 04/22/17 05:25 BUN 26 mg/dl (9-20) H 04/22/17 05:25 Creatinine 1.3 mg/dl (0.8-1.5) 04/22/17 05:25 Est GFR ( Amer) > 60 04/22/17 05:25 Est GFR (Non-Af Amer) 53 04/22/17 05:25 POC Glucose (mg/dL) 152 mg/dL (65-110) H 04/22/17 05:40 Random Glucose 155 mg/dL (75-110) H 04/22/17 05:25 Calcium 8.4 mg/dL (8.4-10.2) 04/22/17 05:25 Total Bilirubin 0.6 mg/dl (0.2-1.3) 04/22/17 05:25 AST 28 U/L (17-59) 04/22/17 05:25 ALT 34 U/L (21-72) 04/22/17 05:25 Alkaline Phosphatase 82 U/L (38-126) 04/22/17 05:25 Troponin I < 0.0120 ng/mL (0.00-0.120) 04/18/17 17:13 Total Protein 6.7 G/DL (6.3-8.2) 04/22/17 05:25 Albumin 3.7 g/dL (3.5-5.0) 04/22/17 05:25 Globulin 3.0 gm/dL (2.2-3.9) 04/22/17 05:25 Albumin/Globulin Ratio 1.2 (1.0-2.1) 04/22/17 05:25 Venous Blood Potassium 4.5 mmol/L (3.6-5.2) 04/18/17 19:37 Urine Color Aimee (YELLOW) 04/18/17 19:28 Urine Clarity Slighty-cloudy (Clear) 04/18/17 19:28 Urine pH 5.0 (5.0-8.0) 04/18/17 19:28 Ur Specific [place] 1.021 (1.003-1.030) 04/18/17 19:28 Urine Protein 100 mg/dL (NEGATIVE) 04/18/17 19:28 Urine Glucose (UA) 50 mg/dL (Normal) 04/18/17 19:28 Urine Ketones Trace mg/dL (NEGATIVE) 04/18/17 19:28 Urine Blood Negative (NEGATIVE) 04/18/17 19:28 Urine Nitrate Negative (NEGATIVE) 04/18/17 19:28 Urine Bilirubin Negative (NEGATIVE) 04/18/17 19:28 Urine Urobilinogen 0.2-1.0 mg/dL (0.2-1.0) 04/18/17 19:28 Ur Leukocyte Esterase Neg Jaye/uL (Negative) 04/18/17 19:28 Urine RBC (Auto) 3 /hpf (0-3) 04/18/17 19:28 Urine Microscopic WBC 3 /hpf (0-5) 04/18/17 19:28 Ur Squamous Epith Cells < 1 /hpf (0-5) 04/18/17 19:28 Hyaline Casts 6-10 /hpf (0-2) H 04/18/17 19:28 - Hospital Course Hospital Course: 86 year old male, is sent to the ED from adult daycare for evaluation of dizziness and hypotension, patient admitted for dehydration with leukocytosis and EVA. Treated with IVF. Blood cultures were negative. Head CT was unremarkable. Patients symptoms have resolved. His leukocytosis and EVA have resolved. He feels well this morning. No complaints. - Date & Time of H&P Date of H&P: 04/19/17 Time of H&P: 07:05 Discharge Exam - Head Exam Head Exam: ATRAUMATIC, NORMAL INSPECTION, NORMOCEPHALIC - Eye Exam Eye Exam: EOMI, Normal appearance, PERRL - Respiratory Exam Respiratory Exam: Clear to PA & Lateral, NORMAL BREATHING PATTERN - Cardiovascular Exam Cardiovascular Exam: REGULAR RHYTHM - GI/Abdominal Exam GI & Abdominal Exam: Unremarkable - Neurological Exam Neurological exam: Alert, CN II-XII Intact - Psychiatric Exam Psychiatric exam: Normal Affect, Normal Mood - Skin Skin Exam: Dry, Warm Discharge Plan - Follow Up Plan Condition: STABLE Disposition: HOME/ ROUTINE Instructions: Dehydration (DC), Dizziness (GEN) Additional Instructions: Hacer rubia con [place] doctor primario, Dr. Moran dentro de brian semana. Referrals: Alberto Herrera DPM [Staff Provider] - Ken Moran MD [Family Provider] -
[2017-04-22] MEDS: CARBIDOPA PO SCH (10:28)
[2017-04-22] MEDS: LEVODOPA PO SCH (10:28)
[2017-04-22] MEDS: ENTACAPONE PO SCH (10:28)
== END 2017-04-22 12:05 | disposition home or self-care (01) | DRG 641 ==
LOC: H.ER 16:18 → H.ERHOLD 21:04 → H.MEDSURG1 22:27
PROVIDERS: ADMIT Internal Medicine; ATTEND Internal Medicine
DX: E86.0 Dehydration (principal); G20 Parkinson's disease; G30.9 Alzheimer's disease, unspecified; F02.80 Dementia in other diseases classified elsewhere, unspecified severity, without behavioral disturbance, psychotic disturbance, mood disturbance, and anxiety; R39.2 Extrarenal uremia; I10 Essential (primary) hypertension; E11.9 Type 2 diabetes mellitus without complications; D72.829 Elevated white blood cell count, unspecified; L85.3 Xerosis cutis; E78.00 Pure hypercholesterolemia, unspecified; N40.0 Benign prostatic hyperplasia without lower urinary tract symptoms; E66.9 Obesity, unspecified; Z68.36 Body mass index [BMI] 36.0-36.9, adult; M19.90 Unspecified osteoarthritis, unspecified site; Z79.4 Long term (current) use of insulin; Z79.82 Long term (current) use of aspirin; Z87.440 Personal history of urinary (tract) infections; Z87.01 Personal history of pneumonia (recurrent)